=== PATIENT | male | born 1940 | race Caucasian/White ===

== ENCOUNTER → 2024-11-12 18:00 | Outpatient (REF) | payer OTHER, SELFPAY | LOC: RAD 18:00 | PROVIDERS: ATTENDING PHYSICIAN Nurse Practitioner Family; FAMILY PHYSICIAN Family Medicine | DX: M25.551 Pain in right hip (principal) | CPT/HCPCS: 73502 ==

== ENCOUNTER 2025-11-05 07:33 | Inpatient (IN) | payer OTHER, SELFPAY ==
[2025-11-02] VITALS (9 sets, daily range): BP systolic 138–158; BP diastolic 55–73; BMI 24.2
[2025-11-02 13:13] LABS: Hematocrit 35.9 % (39.0-52.0); Hemoglobin 12.5 g/dL (13.0-18.0); Mean Corp Hgb Conc. 34.8 g/dL (33.0-37.0); Mean Corpuscular Volume 93.5 fL (80.0-94.0); Nucleated Red Blood Cells % 0 % (-); Platelet Count 195 10^3/uL (130-400); Red Cell Dist. Width 11.9 % (11.5-14.5)
[2025-11-02 13:23] LABS: ALT (SGPT) 17 U/L (0-50); AST (SGOT) 33 U/L (17-59); Albumin 4.1 g/dl (3.5-5.0); Alkaline Phosphatase 97 U/L (38-126); Blood Urea Nitrogen 30 mg/dl (9-20); Calcium 9.5 mg/dl (8.4-10.2); Carbon Dioxide 22 mmol/L (22-30); Chloride 108 mmol/L (98-107); Glucose 121 mg/dl (70-99); Potassium 4.7 mmol/L (3.5-5.1); Sodium 137 mmol/L (135-145); Total Protein 7.5 g/dl (6.3-8.2); eGFR 53.17
[2025-11-02 15:07] LABS: Urine Character Clear (Clear)
[2025-11-02 15:19] LABS: Urine Squamous Cell 0-2 /LPF (Few)
[2025-11-02 15:20] LABS: Urine White Cell 0-2 /HPF (0-5)
--- NOTE | 2025-11-02 16:54 | ED.GENMED ---
History of Present Illness
<Amita Lindo, MANAGER [employer]LECTRONIC - Last Filed: 11/02/25 22:36>
General
Chief Complaint: Weakness
Source: patient and family ( and daughter at bedside)
Exam Limitations: none
Time Seen by Provider: 11/02/25 16:45
History of Present Illness
History of Present Illness:
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
swelling to his right lower leg and frequent falls in the past 2 days. He does have a history of falling occasionally but states he fell 3 times yesterday, once in the bedroom, he fell out of bed, and once in the bathroom. She is having
trouble getting him up and down the steps stating she is unable to take care of him at home the way he is now.
Pt denies CP, SOB, n/v/d/c. Has been incontinent of urine lately per
<Andrew Victoria DO - Last Filed: 11/02/25 17:41>
General
Nursing documentation reviewed up to this point in time: agreed with
Past History
<Amita Lindo, MANAGER [employer]LECTRONIC - Last Filed: 11/02/25 22:36>
Past History
ED Past Medical History: Other (PE, DVT 20 years ago with Jia filter, not anticoagulated)
ED Past Surgical History: Orthopedic
Social History
Tobacco: Non-smoker
Alcohol: None
Personal:
Living: with family
Review of Systems
<Amita Lindo, MANAGER [employer]LECT[employer]IC - Last Filed: 11/02/25 22:36>
Review of Systems
Allergies reviewed?: Yes
All Other Systems: ROS reviewed and negative except as documented in HPI and ROS
Phy Exam
<Amita Lindo, MANAGER [employer]LECTRONIC - Last Filed: 11/02/25 22:36>
Physical Exam
Physical Exam:
GENERAL: No acute distress. A&Ox3.
CONSTITUTIONAL: Afebrile.
EYES: clear, conjunctivae normal
ENMT: moist mucus membranes, Pharynx nl
RESPIRATORY: Regular respirations, nonlabored, lungs clear.
CARDIOVASCULAR: Regular rate and rhythm, no murmurs, no rubs. Equal pedal pulses, feet warm.
GI: Soft, nontender, normal BS
MUSCULOSKELETAL: Moves with ease. Well perfused. Right lower extremity +1 swollen compared to the left.
SKIN: Warm, dry, pink
PSYCH: Normal mood and affect. Well kept, interactive and appropriate
NEUROLOGIC: Awake, alert and oriented. No focal neurological deficits
Course
<Amita Lindo, MANAGER [employer]LECT[employer]IC - Last Filed: 11/02/25 22:36>
Orders/Labs/Results
Orders:
Orders
11/02/25 Breakfast
Regular
At Your Request: Full Participation
Does patient need a safe tray?: No
11/02/25 12:43
Periph Venous Lwr Ext Rt US [US Periph Venous LOWER Ext RT] Urgent
Comment:
Reason For Exam: pain and swelling
11/02/25 12:56
Complete Blood Count/With Diff Urgent
Comprehensive Metabolic Panel Urgent
11/02/25 14:30
Urinalysis Reflex To Culture Urgent
Date Specimen was Collected: 11/02/25
Time Specimen was Collected: 12:42
Urine Microscopic Reflex Cult Urgent
11/02/25 16:55
Case Management Consult ONCE
Case Management Consult: Discharge Planning
Comment: Increasing weakness, falls, unable to take care of him at home.
11/02/25 17:24
CT Head W/o Iv Contrast Urgent
Comment:
Reason For Exam: falls, new DVT
11/02/25 17:28
0.9% Sodium Chloride 500 ml [Nss] 500 ml IV BOLUS
11/02/25 18:00
Heparin 3,000 units IV PRN PRN
Heparin 6,000 units IV PRN PRN
11/02/25 18:27
Heparin 6,000 units IV NOW STA
Nursing to Place Non Medication Order As Directed
Physician Order: PTT 6 hours after initial start of Heparin infusion
Above order entered?: Yes
11/02/25 18:30
Heparin 47388 Units/250 ml 25,000 units in 250 ml IV PER PROTOCOL
Weight to be used for heparin protocol in kilograms (kg):: 74.4
Protocol:: DVT/PE
PTT Goal Range to be used:: PTT 73 to 111 seconds
Order type:: Initial
INITIAL Infusion Dose (UNITS/KG/hr) & then follow protocol:: 18 units/kg/hr
Infusion Dose in UNITS/hr & then follow protocol (UNITS/hr):: 1,300
INFUSION RATE in mL/hr & then follow protocol (mL/hr):: 13
For DVT/PE algorithm, re-bolus for low PTT?: Yes
PTT less than or equal to 64 seconds:: Re-bolus 80 units/kg (max 10,000units). Increase by 300 units/hr
(+ 3mL/hr)
PTT 64.1 to 72.9 seconds:: Re-bolus 40 units/kg (max 5,000 units). Increase by 200 units/hr
(+ 2mL/hr)
PTT 73 to 111 seconds:: Target Range. No change in rate.
PTT 111.1 to 130.9 seconds:: Decrease rate by 200 units/hr (- 2 mL/hr)
PTT 131 to 199.9 seconds:: HOLD for 1 hr. Then decrease by 200 units/hr (- 2mL/hr)
PTT greater than or equal to 200 seconds:: HOLD for 2 hrs & Notify Provider. Then decrease by 300 units/hr
(- 3mL/hr)
Lab follow-up:: Each change, PTT q6h until 2 consecutive are therapeutic. Then
PTT daily.
11/02/25 18:36
PTT Urgent
Comment: Obtain baseline before beginning heparin infusion if not already collected
11/02/25 19:01
Admit/Transfer Patient As Directed
Co-Sign Provider:
Level of Care: Observation services
Assign to:: Medical/Surgical
Physician / Group: Joelle
Diagnosis: DVT
PRN Pain Medication Management As Directed
May give lesser potent ordered pain med per pt: Yes
preference::
Protocol:: Medication orders for pain may be administered in a
manner that supports deferring to patient preference
when the pt is:
- Requesting an ordered lesser potent pain medication.
Least to most potent pain medications are defined
as: acetaminophen < NSAID < tramadol < opioids
(morphine, oxycodone, hydromorphone).
- Requesting a lesser dose of the same medication IF
ORDERED.
- Requesting a less intrusive route of administration
if both routes are prescribed by the provider (PO <
IV).
11/02/25 19:02
Code Status As Directed
Resuscitation Status: Full Code
11/02/25 19:41
COVID-19 Antigen Urgent
Source: Nasal Swab
Influenza A+B Rapid Molecular Urgent
GAEL Source: Nasal Swab
Specimen Description:
11/02/25 21:03
Acetaminophen [Tylenol] 650 mg PO Q4HPRN PRN
11/02/25 21:03
Echo 2D MMode Color/Doppler Routine
Reason for Study: cardiac murmur, hx rheumatic fever
Heparin Protocol- PTT Orders As Directed
PTT per Heparin protocol: -Obtain CBC and baseline PTT - if not already collected.
-Obtain PTT 6 hours from start of infusion. Then, every 6 hours until 2 consecutive
PTT's are therapeutic. Then, PTT Daily.
-With each rate change, obtain PTT every 6 hours until 2 consecutive PTT's are
therapeutic. Then, PTT Daily.
Activity As Directed
Activity Level: Out of Bed-Early Mobility
With Assistance
Notify MD As Directed
Notify physician if: PTT is greater than or equal to 200.
Vital Signs As Directed
Frequency: Per unit guidelines
Ot Eval And Treat Routine
Pt Eval And Treat Routine
Activity Level: Out of Bed-Early Mobility
Speech Therapy Eval & Treat Routine
Treatment: Cognitive Eval BCAT/MOCA
11/03/25 01:06
PTT Routine
11/04/25 06:00
Complete Blood Count/No Diff Q2D
Comment: notify provider: Platelet count < 130,000 or decrease by 50% from baseline
11/06/25 06:00
Complete Blood Count/No Diff Q2D
Comment: notify provider: Platelet count < 130,000 or decrease by 50% from baseline
11/08/25 06:00
Complete Blood Count/No Diff Q2D
Comment: notify provider: Platelet count < 130,000 or decrease by 50% from baseline
11/10/25 06:00
Complete Blood Count/No Diff Q2D
Comment: notify provider: Platelet count < 130,000 or decrease by 50% from baseline
11/12/25 06:00
Complete Blood Count/No Diff Q2D
Comment: notify provider: Platelet count < 130,000 or decrease by 50% from baseline
11/14/25 06:00
Complete Blood Count/No Diff Q2D
Comment: notify provider: Platelet count < 130,000 or decrease by 50% from baseline
11/16/25 06:00
Complete Blood Count/No Diff Q2D
Comment: notify provider: Platelet count < 130,000 or decrease by 50% from baseline
11/18/25 06:00
Complete Blood Count/No Diff Q2D
Comment: notify provider: Platelet count < 130,000 or decrease by 50% from baseline
Abnormal Lab Results
11/02/25 11/02/25
12:56 14:30
RBC 3.84 L 10^6/uL
(4.70-6.10)
Hgb 12.5 L g/dL
(13.0-18.0)
Hct 35.9 L %
(39.0-52.0)
MCH 32.6 H pg
(27.0-31.0)
Absolute Neuts (auto) 6.9 H 10^3/uL
(1.4-6.5)
Absolute Lymphs (auto) 1.1 L 10^3/uL
(1.2-3.4)
Neutrophils % 82.7 H %
(42.2-75.2)
Lymphocytes % 12.6 L %
(20.5-51.1)
Chloride 108 H mmol/L
(98-107)
BUN 30 H mg/dl
(9-20)
Glucose 121 H mg/dl
(70-99)
Urine Ketones 2+ A
(Negative)
Ur Occult Blood Reflex 4+ A
(Negative)
Urine RBC 3-6 A /HPF
(0-2)
Urine Bacteria (Reflex) Few A
(Negative)
Urine Albumin (Reflex) 3+ A
(Neg - Trace)
11/02/25 12:56
11/02/25 12:56
Vital Signs
Initial and Last Documented VS:
Initial Vital Signs
Temp Pulse Resp BP Pulse Ox
98.0 F 62 17 151/67 100
11/02/25 12:36 11/02/25 12:36 11/02/25 12:36 11/02/25 12:36 11/02/25 12:36
Last Documented Vital Signs
Temp Pulse Resp BP Pulse Ox
98.0 F 62 17 138/71 97
11/02/25 12:36 11/02/25 12:36 11/02/25 12:36 11/02/25 22:00 11/02/25 20:25
<Andrew Victoria, DO - Last Filed: 11/02/25 17:41>
Orders/Labs/Results
Orders:
Orders
11/02/25 Breakfast
Regular
At Your Request: Full Participation
Does patient need a safe tray?: No
11/02/25 12:43
Periph Venous Lwr Ext Rt US [US Periph Venous LOWER Ext RT] Urgent
Comment:
Reason For Exam: pain and swelling
11/02/25 12:56
Complete Blood Count/With Diff Urgent
Comprehensive Metabolic Panel Urgent
11/02/25 14:30
Urinalysis Reflex To Culture Urgent
Date Specimen was Collected: 11/02/25
Time Specimen was Collected: 12:42
Urine Microscopic Reflex Cult Urgent
11/02/25 16:55
Case Management Consult ONCE
Case Management Consult: Discharge Planning
Comment: Increasing weakness, falls, unable to take care of him at home.
11/02/25 17:24
CT Head W/o Iv Contrast Urgent
Comment:
Reason For Exam: falls, new DVT
11/02/25 17:28
0.9% Sodium Chloride 500 ml [Nss] 500 ml IV BOLUS
11/02/25 18:00
Heparin 3,000 units IV PRN PRN
Heparin 6,000 units IV PRN PRN
11/02/25 18:27
Heparin 6,000 units IV NOW STA
Nursing to Place Non Medication Order As Directed
Physician Order: PTT 6 hours after initial start of Heparin infusion
Above order entered?: Yes
11/02/25 18:30
Heparin 50214 Units/250 ml 25,000 units in 250 ml IV PER PROTOCOL
Weight to be used for heparin protocol in kilograms (kg):: 74.4
Protocol:: DVT/PE
PTT Goal Range to be used:: PTT 73 to 111 seconds
Order type:: Initial
INITIAL Infusion Dose (UNITS/KG/hr) & then follow protocol:: 18 units/kg/hr
Infusion Dose in UNITS/hr & then follow protocol (UNITS/hr):: 1,300
INFUSION RATE in mL/hr & then follow protocol (mL/hr):: 13
For DVT/PE algorithm, re-bolus for low PTT?: Yes
PTT less than or equal to 64 seconds:: Re-bolus 80 units/kg (max 10,000units). Increase by 300 units/hr
(+ 3mL/hr)
PTT 64.1 to 72.9 seconds:: Re-bolus 40 units/kg (max 5,000 units). Increase by 200 units/hr
(+ 2mL/hr)
PTT 73 to 111 seconds:: Target Range. No change in rate.
PTT 111.1 to 130.9 seconds:: Decrease rate by 200 units/hr (- 2 mL/hr)
PTT 131 to 199.9 seconds:: HOLD for 1 hr. Then decrease by 200 units/hr (- 2mL/hr)
PTT greater than or equal to 200 seconds:: HOLD for 2 hrs & Notify Provider. Then decrease by 300 units/hr
(- 3mL/hr)
Lab follow-up:: Each change, PTT q6h until 2 consecutive are therapeutic. Then
PTT daily.
11/02/25 18:36
PTT Urgent
Comment: Obtain baseline before beginning heparin infusion if not already collected
11/02/25 19:01
Admit/Transfer Patient As Directed
Co-Sign Provider:
Level of Care: Observation services
Assign to:: Medical/Surgical
Physician / Group: Joelle
Diagnosis: DVT
PRN Pain Medication Management As Directed
May give lesser potent ordered pain med per pt: Yes
preference::
Protocol:: Medication orders for pain may be administered in a
manner that supports deferring to patient preference
when the pt is:
- Requesting an ordered lesser potent pain medication.
Least to most potent pain medications are defined
as: acetaminophen < NSAID < tramadol < opioids
(morphine, oxycodone, hydromorphone).
- Requesting a lesser dose of the same medication IF
ORDERED.
- Requesting a less intrusive route of administration
if both routes are prescribed by the provider (PO <
IV).
11/02/25 19:02
Code Status As Directed
Resuscitation Status: Full Code
11/02/25 19:41
COVID-19 Antigen Urgent
Source: Nasal Swab
Influenza A+B Rapid Molecular Urgent
GAEL Source: Nasal Swab
Specimen Description:
11/02/25 21:03
Acetaminophen [Tylenol] 650 mg PO Q4HPRN PRN
11/02/25 21:03
Echo 2D MMode Color/Doppler Routine
Reason for Study: cardiac murmur, hx rheumatic fever
Heparin Protocol- PTT Orders As Directed
PTT per Heparin protocol: -Obtain CBC and baseline PTT - if not already collected.
-Obtain PTT 6 hours from start of infusion. Then, every 6 hours until 2 consecutive
PTT's are therapeutic. Then, PTT Daily.
-With each rate change, obtain PTT every 6 hours until 2 consecutive PTT's are
therapeutic. Then, PTT Daily.
Activity As Directed
Activity Level: Out of Bed-Early Mobility
With Assistance
Notify MD As Directed
Notify physician if: PTT is greater than or equal to 200.
Vital Signs As Directed
Frequency: Per unit guidelines
Ot Eval And Treat Routine
Pt Eval And Treat Routine
Activity Level: Out of Bed-Early Mobility
Speech Therapy Eval & Treat Routine
Treatment: Cognitive Eval BCAT/MOCA
11/03/25 01:06
PTT Routine
11/04/25 06:00
Complete Blood Count/No Diff Q2D
Comment: notify provider: Platelet count < 130,000 or decrease by 50% from baseline
11/06/25 06:00
Complete Blood Count/No Diff Q2D
Comment: notify provider: Platelet count < 130,000 or decrease by 50% from baseline
11/08/25 06:00
Complete Blood Count/No Diff Q2D
Comment: notify provider: Platelet count < 130,000 or decrease by 50% from baseline
11/10/25 06:00
Complete Blood Count/No Diff Q2D
Comment: notify provider: Platelet count < 130,000 or decrease by 50% from baseline
11/12/25 06:00
Complete Blood Count/No Diff Q2D
Comment: notify provider: Platelet count < 130,000 or decrease by 50% from baseline
11/14/25 06:00
Complete Blood Count/No Diff Q2D
Comment: notify provider: Platelet count < 130,000 or decrease by 50% from baseline
11/16/25 06:00
Complete Blood Count/No Diff Q2D
Comment: notify provider: Platelet count < 130,000 or decrease by 50% from baseline
11/18/25 06:00
Complete Blood Count/No Diff Q2D
Comment: notify provider: Platelet count < 130,000 or decrease by 50% from baseline
Abnormal Lab Results
11/02/25 11/02/25
12:56 14:30
RBC 3.84 L 10^6/uL
(4.70-6.10)
Hgb 12.5 L g/dL
(13.0-18.0)
Hct 35.9 L %
(39.0-52.0)
MCH 32.6 H pg
(27.0-31.0)
Absolute Neuts (auto) 6.9 H 10^3/uL
(1.4-6.5)
Absolute Lymphs (auto) 1.1 L 10^3/uL
(1.2-3.4)
Neutrophils % 82.7 H %
(42.2-75.2)
Lymphocytes % 12.6 L %
(20.5-51.1)
Chloride 108 H mmol/L
(98-107)
BUN 30 H mg/dl
(9-20)
Glucose 121 H mg/dl
(70-99)
Urine Ketones 2+ A
(Negative)
Ur Occult Blood Reflex 4+ A
(Negative)
Urine RBC 3-6 A /HPF
(0-2)
Urine Bacteria (Reflex) Few A
(Negative)
Urine Albumin (Reflex) 3+ A
(Neg - Trace)
11/02/25 12:56
11/02/25 12:56
Vital Signs
Initial and Last Documented VS:
Initial Vital Signs
Temp Pulse Resp BP Pulse Ox
98.0 F 62 17 151/67 100
11/02/25 12:36 11/02/25 12:36 11/02/25 12:36 11/02/25 12:36 11/02/25 12:36
Last Documented Vital Signs
Temp Pulse Resp BP Pulse Ox
98.0 F 62 17 138/71 97
11/02/25 12:36 11/02/25 12:36 11/02/25 12:36 11/02/25 22:00 11/02/25 20:25
<Amita Lindo, MANAGER ELECTRONIC - Last Filed: 11/02/25 22:36>
MDM/Problems Addressed
Differential Diagnosis Includes:
DVT, neuropathy, dehydration
MDM/Problems Addressed:
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
swelling to his right lower leg and frequent falls in the past 2 days. He does have a history of falling occasionally but states he fell 3 times yesterday, once in the bedroom, he fell out of bed, and once in the bathroom. She is having
trouble getting him up and down the steps stating she is unable to take care of him at home the way he is now.
Pt denies CP, SOB, n/v/d/c. Has been incontinent of urine lately per
CBC w no clinically significant abnormality
CMP: BUN 30 otherwise normal
U/A neg
Ultrasound right lower extremity radiology report read: Occlusive thrombus throughout the popliteal vein extending into the peroneal and posterior tibial veins. Additionally there is a nonocclusive thrombus within the distal femoral vein.
With recent falls we will check head CT before starting heparin
6:[address] unremarkable. Heparin drip ordered.
Hospitalist notified of admission
<Amita Lindo MANAGER [employer]LECTRONIC - Last Filed: 11/02/25 22:36>
*Pulse Oximetry
SaO2: 100
Oxygen Mode of Delivery: Room air
Patient hypoxic: no
*Critical Care Note
Total Time (30-74mins, 75-104mins- exclusive of procedures): Not Applicable
ED Attending Note
<Amita Lindo MANAGER [employer]LECT[employer]IC - Last Filed: 11/02/25 22:36>
-
Portions of this chart may have been created with voice recognition software.� Occasional wrong word or��sound alike� substitutions may have occurred due to the inherent limitations of voice recognition software.
<Andrew Victoria, DO - Last Filed: 11/02/25 17:41>
ED Attending Note
Patient seen and examined by attending physician: Yes
ED Attending Note:
I have reviewed and agree with history and treatment plan by Nissa Lindo DNP. My exam revealed 85-year-old male with right lower extremity edema. No other signs of trauma. Normal pulses in all extremities. Patient unable to ambulate. Will check
CT head start heparin due to right lower extremity DVT. Hospitalist admission after normal head CT.
Discharge Plan
Departure
Patient Disposition: Admit
Date of Disposition: 11/02/25
Time of Disposition: 18:32
Admit to: Med/Surg
Presentation/result/management discussed w/ accepting MD/DO: Hospitalist
Condition: Fair
Discharge Problem:
General weakness, Falls, Mild dehydration, Acute deep vein thrombosis (DVT) of right lower extremity
Interventions
Interventions:
*General Assessment Last Done: 11/02/25 17:31
*Neglect/Abuse Screening Last Done: 11/02/25 12:36
*ED COVID-19 Vaccine History Last Done: 11/02/25 17:31
*ED Influenza Vaccine History Last Done: 11/02/25 17:[address]
[facility] Fall Risk Assessment Tool Last Done: 11/02/25 17:28
*Risk Screen - Suicide (C-SSRS) Last Done: 11/02/25 17:31
ED- Cardiac Assessment Last Done: 11/02/25 17:31
ED- Neurological Assessment Last Done: 11/02/25 17:31
ED- Pulmonary Assessment Last Done: 11/02/25 17:31
--- NOTE | 2025-11-02 17:27 | EDCM ---
Received consult, reviewed chart and met with pt, his and daughters bedside in ED.
Lives with his in [address]. Independent in ADLs, personal care and ambulation at baseline, uses a cane, has been using a critch over past several days, also has walker but does not use it.
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 BPH.
Pt had 3 falls yesterday, does not feel she can care for him at home.
Discussed SNF placement, will need to be seen by PT for recommendations.
They are not familiar with SNF in the area, discussed reviewing facilities on [employer].
Per Shannan UNGER, pt has DVT and will be admitted.
CM will continue to follow for all discharge planning needs.
[2025-11-02] MEDS: NSS 500 IV (17:43)
[2025-11-02 18:55] LABS: APTT 27.7 Sec (23.4-35.0)
[2025-11-02] MEDS: HEPARIN 6000 UNITS IV (19:05)
--- NOTE | 2025-11-02 19:05 | HPS.HSE ---
Addendum entered and electronically signed by Kelvin Lai MD 11/02/25 19:40:
This is an addendum to H&P written by Maryellen Ramsey on 11/02/2025. �Patient seen examined independently with PA.
85-year-old male past medical history of CKD 3A, prior DVT PE with history of IVC filter, rheumatic fever, presenting with 3 falls yesterday. �Pain in right calf for 6 weeks. �Patient also with fatigue at this time and a little forgetful at this
time. �Slight cough.
No provoking factors apart from immobility on regular basis.�
Vital signs unremarkable.
Labs unremarkable.
Venous ultrasound shows occlusive thrombus throughout the popliteal vein extending to the peroneal/posterior tibial veins. �Nonocclusive thrombus within the distal femoral vein. �CT head shows no acute intracranial abnormality. �Moderate
periventricular and subcortical white matter hypodensities nonspecific although may be sequelae of moderate chronic small vessel ischemic disease.
Urinalysis unremarkable.
Patient with recurrent unprovoked right lower extremity DVT. �Heparin drip.
Patient will be confused at this time which is not like his normal self. �Urinalysis unremarkable. �Check COVID and flu.
Original Note:
Family Physician
-
Family Physician: NOT KNOW UNKNOWN - PT DOES
Chief Complaint
-
Frequent Falls
History of Present Illness
Patient is an 85 y/o male past medical history of CKD IIIA and DVT/PE who presents with frequent falls. Additional history is obtained from patient's family at the bedside. Patient sustained 3 falls yesterday. Patient is complaining of pain in
his right calf, particularly with movement for the past 6 weeks. He denies chest pain or palpitations.
Medical History
Past Medical History
Past Medical History: Reports Other
Additional Past Medical History:
CKD Stage IIIA
DVT/PE
Rheumatic Fever as a child
Past Surgical History: Reports Other
Additional Past Surgical History:
Right Hip Replacement
Right Total Knee Replacement
Social History
Tobacco: Non-smoker
Alcohol: None
Personal:
Living: With Family
Family History
Family History: Not pertinent
Allergies / Home Medications
Allergies reflects when Allergies were last updated in [facility].
Home Medications with original date entered in [facility]
Allergy/Medication List:
Allergies
Allergy/AdvReac Type Severity Reaction Status Date / Time
No Known Allergies Allergy Unverified 11/02/25 12:35
Home Medications
No Meds [No Current Medications] 11/02/25
Review of Systems
-
History Source: Patient
A 12 point ROS was completed and negative except as noted: Yes
Constitutional: Denies Fever or Chills
Respiratory: Denies Cough or Trouble Breathing
Cardiac: Denies Chest Pain or Palpitations
Physical Exam
Vital Signs
Vital Signs
Temp Pulse Resp BP Pulse Ox
98.0 F 62 17 141/67 98
11/02/25 12:36 11/02/25 12:36 11/02/25 12:36 11/02/25 17:28 11/02/25 17:31
Physical Exam
General: Comfortable and Conversant
HEENT: Anicteric and Moist mucous membranes
Respiratory: Clear and Non Labored Respirations
Cardiac: S1/S2, Regular Rhythm and Murmur
GI: Soft and Non Tender
Rectal: Deferred by Provider
Musculoskeletal: No Clubbing, No Cyanosis and Edema, Right Lower Extremity
Skin: Warm, Dry and Other (Mild erythema right lower extremity)
Neuro: Awake, Alert and Nonfocal/grossly intact
Psych: Calm and Other (Appears slightly confused)
Laboratory Results
-
11/02/25 12:56
11/02/25 12:56
Laboratory Results
APTT 27.7 Sec (23.4-35.0) 11/02/25 18:36
Total Bilirubin 1.0 mg/dl (0.2-1.3) 11/02/25 12:56
AST 33 U/L (17-59) 11/02/25 12:56
ALT 17 U/L (0-50) 11/02/25 12:56
Alkaline Phosphatase 97 U/L (38-126) 11/02/25 12:56
Peripheral Vascular US:
Occlusive thrombus throughout the popliteal vein extending into the peroneal and posterior tibial veins. Additionally there is nonocclusive thrombus within the distal femoral vein.
Head CT:
No acute intracranial abnormality noted.
There are moderate periventricular and subcortical white matter hypodensities which are nonspecific although may be sequelae of moderate chronic small vessel ischemic disease.
Data Reviewed
-
CT Scan: Report Reviewed by me
Ultrasound: Report Reviewed by me
Lab Data: Labs Reviewed by me
Old Records: Reviewed
Impression/Plan
-
Right Lower Extremity DVT
-Continue heparin drip
Generalized Weakness / Frequent Falls / Confusion
-Family reports patient has not been sleeping well
-Check COVID and Influenza
-Consult PT/OT
Cardiac Murmur, likely related to rheumatic heart disease
-Check Echo
CKD Stage IIIA
-Renal function at baseline
Code Status: Full Code
[2025-11-02] MEDS: HEPARIN 25000 UNITS/250 ML IV (19:06)
[2025-11-02 20:08] LABS: COVID-19 Antigen Negative (Negative)
[2025-11-03] VITALS (13 sets, daily range): BP systolic 125–167; BP diastolic 58–91; PULSE 71–73; O2SAT 96; BMI 21.9
[2025-11-03 01:51] LABS: APTT 103.1 Sec (23.4-35.0)
--- NOTE | 2025-11-03 07:10 | W.PN.HOSP.TC ---
Addendum entered and electronically signed by Rosana Madsne MD 11/03/25 18:28:
I saw and evaluated the patient independently. I reviewed and discussed the resident�s note and agree with findings and plan as documented by Dr. Cortez.
GENERAL: well developed, well nourished, male in no apparent distress, alert and oriented x 2 (name and year, said we were in [facility])
HEENT: NC/AT, very hard of hearing
HEART: regular rate and rhythm, +S1, +S2, holosystolic murmur
LUNGS : clear to auscultation bilaterally
ABDOM: soft, nontender, nondistended, + bowel sounds
EXT: right leg swollen and red
NEUROLOGIC: significant apparent dementia
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
Generalized Weakness/Frequent Falls/Confusion--hx of Dementia--MOCA 09/16--needs neuropsych testing--PT/OT-- states this is his baseline.
Cardiac Murmur(pansystolic), likely related to rheumatic heart disease- pending Echo
CKD Stage IIIA--Renal function at baseline
Dr. Cortez called his to get additional history. The told me for the last 4 to 5 years he has been confused at times and mostly sleepy/drowsy and tired however no official dementia dx was made. She verified that he does not take any
medications and he has a history of previous DVT and PE and has a IVC filter. She was very appreciative of the updates and the call.
Original Note:
Today's Communication/Plan
-
check echo
continue heparin drip
pt/ot
cm consult for pricing on eliquis
consult heme for recurrent dvt and workup
Assessment / Plan
Assessment / Plan
85-year-old male past medical history of CKD 3A, prior DVT PE with history of IVC filter, rheumatic fever, presented after experiencing recurrent falls. Initial investigation with DVT on the right lower extremity.
#Right Lower Extremity DVT
- US with Occlusive thrombus throughout the popliteal vein extending into the peroneal and posterior tibial veins. Additionally there is nonocclusive thrombus within the distal femoral vein.
- s/p heparin bolus and currently on heparin drip; Continue heparin drip
- cm consult for pricing on eliquis
- consult heme for recurrent dvt and workup
#Generalized Weakness / Frequent Falls / Confusion
# hx of Dementia
-Family reports patient has not been sleeping well
-COVID and Influenza negative
-pending PT/OT eval
Head CT IMPRESSION:
No acute intracranial abnormality noted.
There are moderate periventricular and subcortical white matter hypodensities which are nonspecific although may be sequelae of moderate chronic small vessel ischemic disease. If there is high clinical suspicion for ischemia an MRI may be considered
for further evaluation.
states this is his baseline.
#Cardiac Murmur(pansystiolic), likely related to rheumatic heart disease
- pending Echo
#CKD Stage IIIA
-Renal function at baseline
I called his to get additional history. The told me for the last 4 to 5 years he has been confused at times and mostly sleepy/drowsy and tired however no official dementia dx was made. She verified that he does not take any medications
and he has a history of previous DVT and PE and has a IVC filter. She was very appreciative of the updates and the call.
Code Status: Full Code
Anticipated Discharge: 24 - 48 hours
Subjective/Interval History
-
Date of Service: November 03, 2025
AFVSS. Patient offers no new complaints(keeping in mind that patient has dementia)
Objective Data
-
Labs:
Laboratory Results
11/03/25 11/03/25
01:11 08:30
APTT 103.1 H Pending
Vital Signs:
Vital Signs
Temp Pulse Resp BP Pulse Ox
98 F 72 17 147/71 97
11/03/25 06:18 11/03/25 06:18 11/03/25 06:18 11/03/25 06:18 11/02/25 20:25
I&O
11/02/25 11/03/25 11/04/25
06:59 06:59 06:59
Output Total 200 / 200
Balance -200 / -200
Review of Systems
-
Unable to obtain full review of systems at this time due to: Dementia
History Source: Patient
Respiratory: Denies Trouble Breathing
Cardiac: Denies Chest Pain
Abdomen/GI: Denies Abdominal Pain
Neuro: Denies Headache or Weakness
Physical Exam
-
General: Well Nourished, Comfortable and Appears Chronically Ill
Respiratory: Clear to Auscultation
Cardiac: Regular Rhythm, S1/S2 and Murmur (Pansystolic)
GI: Soft and Nontender
Musculoskeletal: No Cyanosis
Skin: Warm and Other (Mild erythema of right lower extremity)
Neuro: Awake, Alert and Other (Oriented to time but not to place)
Data Reviewed
-
CT Scan: Report Reviewed by me, Discussed with Physician and Discussed with Patient
Ultrasound: Report Reviewed by me, Discussed with Physician and Discussed with Patient
Labs: Labs Reviewed by me, Discussed with Physician and Discussed with Patient
[2025-11-03 09:20] LABS: APTT 65.8 Sec (23.4-35.0)
[2025-11-03] MEDS: HEPARIN 3000 UNITS IV (09:59)
--- NOTE | 2025-11-03 11:06 | CM ---
Addendum entered by Alana Gonzáles 11/03/25 12:26:
Patient signed OBS/REESE form and given to motor express clerk for filing and copy to .
Original Note:
Patient seen at bedside with physicians in ED. Patient here as OBS/REESE and CM provided form in room. CM will call to patient family to update. CM will call to confirm cost of Eliquis and pending therapy recommendation, SNF vs home with VN. CM will
continue to follow for discharge planning needs.
Plan; SNF vs home with VN pending medical treatment plan
--- NOTE | 2025-11-03 11:34 | CON.ONC ---
Consultation
-
Date Consultation Requested: 11/03/25
Date Consultation Performed: 11/03/25
Requesting Provider: Tena
Performing Provider: Gillian
Reason for Consultation: DVT
Impression
Impression
RLE popliteal DVT
Gait dysfunction
Hx IVC filter
Suspected dementia
Plan
Plan
IV heparin started. With falls, not sure candidate for outpatient A/C as bleeding risk.
Get a Phys Tx eval to assess anticoagulation safety from perspective of falls risk. He has IVC filter already in case is is determined to be a poor A/C candidate.
Hypercoag workup not indicated as it will not environmental change analyst especially with his advanced age, co morbidities (falls risk, suspected dementia), and not covered while inpatient.
Main decision will be the safety of anticoagulation to improve symptomic DVT as IVC filter should protect him from PE.
Patient History
History of Present Illness
CC: Weakness, falls, leg swelling
HPI: 85-year-old male with remote history of DVT and pulmonary embolus 20 years ago has Tatum filter presents with swelling to his right lower leg and frequent falls in the past 2 days. He does have a history of falling occasionally but
states he fell 3 times yesterday. She is having trouble getting him up and down the steps stating she is unable to take care of him at home the way he is now.
Pt denies CP, SOB, n/v/d/c. Seen in ECHO lab.
Past-Medical/Surgical History
PMH: PE, DVT 20 years ago with Tatum filter, not anticoagulated), BPH, suspected dementia, Aortic stenosis, Hx rheumatic fever during childhood, Stage 3a CKD
PSH: Right Hip Replacement, Right Total Knee Replacement
Social History
Tobacco: Non-smoker
Alcohol: None
Personal:
Living: with family
Patient Medication
�Medication �Instructions �Recorded �Confirmed �Last Taken �Type
No Meds [No Current Medications] 11/02/25 11/02/25 Unknown History
Active Medications
Generic Name Dose Route Start Last Admin
Trade Name Freq PRN Reason Stop Dose Admin
Acetaminophen 650 mg 11/02/25 21:03
Acetaminophen 325 Mg Tablet PO 11/30/25 21:02
Q4HPRN PRN
mild pain/ fever>100.5F
Heparin Sodium 6,000 units 11/02/25 18:00
Heparin 80 Units/Kg Iv Rebolus IV 11/30/25 17:59
PRN PRN
PTT < OR = 64 seconds
Heparin Sodium 3,000 units 11/02/25 18:00 11/03/25 09:59
Heparin 40 Units/Kg Iv Rebolus IV 11/30/25 17:59 3,000 units
PRN PRN Administration
PTT = 64.1 to 72.9 seconds
Heparin Sodium 25,000 units in 250 mls @ 0 mls/hr 11/02/25 18:30 11/02/25 19:06
Heparin 29013 Units/250 Ml IV 250 mls
PER PROTOCOL MICHAEL Administration
Protocol
Per Protocol
Sodium Chloride 0 flush 11/02/25 22:00
Sodium Chloride 0.9% (Flush) Syringe IV 11/30/25 21:59
PER PROTOCOL MICHAEL
Physical Exam
-
General: No Apparent Distress and Comfortable
HEENT: Negative Jaundice
Cardiology: S1, S2 and Murmur (2-3+)
Pulmonary: Clear
GI: Soft
Labs
Lab Results
WBC 8.4 10^3/uL (4.8-10.8) 11/02/25 12:56
RBC 3.84 10^6/uL (4.70-6.10) L 11/02/25 12:56
Hgb 12.5 g/dL (13.0-18.0) L 11/02/25 12:56
Hct 35.9 % (39.0-52.0) L 11/02/25 12:56
MCV 93.5 fL (80.0-94.0) 11/02/25 12:56
MCH 32.6 pg (27.0-31.0) H 11/02/25 12:56
MCHC 34.8 g/dL (33.0-37.0) 11/02/25 12:56
RDW 11.9 % (11.5-14.5) 11/02/25 12:56
Plt Count 195 10^3/uL (130-400) 11/02/25 12:56
MPV 10.0 fL (7.4-10.4) 11/02/25 12:56
Abs Immat Gran (auto) 0.0 10^3/uL (0-0.05) 11/02/25 12:56
Absolute Neuts (auto) 6.9 10^3/uL (1.4-6.5) H 11/02/25 12:56
Absolute Lymphs (auto) 1.1 10^3/uL (1.2-3.4) L 11/02/25 12:56
Absolute Monos (auto) 0.3 10^3/uL (0.1-0.6) 11/02/25 12:56
Absolute Eos (auto) 0.0 10^3/uL (0-0.7) 11/02/25 12:56
Absolute Basos (auto) 0.0 10^3/uL (0-0.2) 11/02/25 12:56
Immature Gran % 0.2 % (0-0.5) 11/02/25 12:56
Neutrophils % 82.7 % (42.2-75.2) H 11/02/25 12:56
Lymphocytes % 12.6 % (20.5-51.1) L 11/02/25 12:56
Monocytes % 3.9 % (1.7-9.3) 11/02/25 12:56
Eosinophils % 0.2 % (0-6) 11/02/25 12:56
Basophils % 0.4 % (0-2) 11/02/25 12:56
Creatinine 1.3 mg/dL (0.7-1.3) 11/02/25 12:56
Vital Signs
Vital Signs
Temp Pulse Resp BP Pulse Ox
97.4 F 70 20 154/67 97
11/03/25 07:17 11/03/25 10:00 11/03/25 10:00 11/03/25 10:00 11/02/25 20:25
--- NOTE | 2025-11-03 13:12 | PTOTSP ---
FUR SEWER Evaluation
Patient presents with signs concerning for a severe cognitive linguistic impairment that is also affecting expressive and receptive language. MOCA version 8.1 = 09/16 (below normal of 26 or higher). See patient care note for details.
Recommend:
1. Consider neuro consult and/or neuropsych testing at the next level of care
2. Full supervision with higher level cognitive linguistic tasks (meds, finances, cooking)
[2025-11-03] MEDS: HEPARIN 25000 UNITS/250 ML IV (16:25)
[2025-11-03 17:00] LABS: APTT 173.8 Sec (23.4-35.0)
[2025-11-04 00:43] LABS: APTT 88.8 Sec (23.4-35.0)
[2025-11-04 06:47] LABS: Hematocrit 32.6 % (39.0-52.0); Hemoglobin 11.5 g/dL (13.0-18.0); Mean Corp Hgb Conc. 35.3 g/dL (33.0-37.0); Mean Corpuscular Volume 92.9 fL (80.0-94.0); Platelet Count 180 10^3/uL (130-400); Red Cell Dist. Width 11.8 % (11.5-14.5)
[2025-11-04 06:58] LABS: APTT 109.1 Sec (23.4-35.0)
--- NOTE | 2025-11-04 07:16 | W.PN.HOSP.TC ---
Addendum entered and electronically signed by Rosana Madsen MD 11/04/25 18:10:
I saw and evaluated the patient independently. I reviewed and discussed the resident�s note and agree with findings and plan as documented by Dr. Cortez.
GENERAL: well developed, well nourished, male in no apparent distress
HEENT: NC/AT, very hard of hearing
HEART: regular rate and rhythm, +S1, +S2, holosystolic murmur
LUNGS : clear to auscultation bilaterally
ABDOM: soft, nontender, nondistended, + bowel sounds
EXT: right leg swollen and red
NEUROLOGIC: significant apparent dementia
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
Generalized Weakness/Frequent Falls/Confusion--hx of Dementia--MOCA 09/16--needs neuropsych testing--PT/OT-- states not baseline as current mental status decline has been the last 2 weeks--consult neuro
Cardiac Murmur(pansystolic), likely related to rheumatic heart disease- pending Echo
CKD Stage IIIA--Renal function at baseline
DVT proph--IV heparin drip
code status--full code
Original Note:
Today's Communication/Plan
-
Placement per CM
heme input for AC
neuro eval
Assessment / Plan
Assessment / Plan
85-year-old male past medical history of CKD 3A, prior DVT PE with history of IVC filter, rheumatic fever, presented after experiencing recurrent falls. Initial investigation with DVT on the right lower extremity.
#Right Lower Extremity DVT
- US with Occlusive thrombus throughout the popliteal vein extending into the peroneal and posterior tibial veins. Additionally there is nonocclusive thrombus within the distal femoral vein.
- s/p heparin bolus and currently on heparin drip; Continue heparin drip
- cm consult for pricing on eliquis
- heme input appreciated
- There is concern for safety with patient on anticoagulation given the history of frequent falls
#Generalized Weakness / Frequent Falls / Confusion
# hx of Dementia
-Family reports patient has not been sleeping well
-COVID and Influenza negative
- PT/OT eval recs SNF; might need [facility] rehab
- will consult neuro for evaluation
Head CT IMPRESSION:
No acute intracranial abnormality noted.
There are moderate periventricular and subcortical white matter hypodensities which are nonspecific although may be sequelae of moderate chronic small vessel ischemic disease. If there is high clinical suspicion for ischemia an MRI may be considered
for further evaluation.
states this is his baseline.
#Cardiac Murmur(pansystiolic), likely related to rheumatic heart disease
- ECHO SUMMARY
1. Normal left ventricular chamber size with mild left ventricular hypertrophy, ejection fraction 6065%.
2. Moderate aortic stenosis with peak/mean gradient of 59/36 mmHg respectively, aortic valve area 1.3 cm².
#CKD Stage IIIA
-Renal function at baseline
I called his for updated on medical progress. She is aware regarding the placement recommendations and agree. She is aware of the safety concerns while being on a blood thinner for DVT prophylaxis
Code Status: Full Code
DVT prophylaxis: Patient is on heparin drip
Anticipated Discharge: Within 24 hours
Subjective/Interval History
-
Date of Service: November 04, 2025
AFVSS. Patient offers no new complaints.
Objective Data
-
Labs:
Laboratory Results
11/04/25 11/04/25
00:19 06:23
WBC 9.3
Hgb 11.5 L
Hct 32.6 L
Plt Count 180
APTT 88.8 H 109.1 H
Vital Signs:
Vital Signs
Temp Pulse Resp BP Pulse Ox
99.5 F 67 18 150/65 96
11/03/25 23:00 11/03/25 23:00 11/03/25 23:00 11/03/25 23:00 11/03/25 23:00
I&O
11/03/25 11/04/25 11/05/25
06:59 06:59 06:59
Intake Total 480 / 480
Output Total 200 / 200 950 / 950
Balance -200 / -200 -470 / -470
Review of Systems
-
Unable to obtain full review of systems at this time due to: Dementia
History Source: Patient
Respiratory: Denies Trouble Breathing
Cardiac: Denies Chest Pain
Abdomen/GI: Denies Abdominal Pain
Neuro: Denies Headache or Weakness
Physical Exam
-
General: Well Nourished, Comfortable and Appears Chronically Ill
Respiratory: Clear to Auscultation
Cardiac: Regular Rhythm, S1/S2 and Murmur (Pansystolic)
GI: Soft and Nontender
Genito-urinary: Hankins
Musculoskeletal: No Cyanosis
Skin: Warm and Other (Mild erythema of right lower extremity)
Neuro: Awake, Alert and Other (Oriented to time but not to place)
Data Reviewed
-
Labs: Labs Reviewed by me, Discussed with Physician, Discussed with Patient and Discussed with Family
[2025-11-04 07:27] VITALS: BP 139/57
--- NOTE | 2025-11-04 08:38 | WOUNDNOTE ---
BACK (MID/LEFT SIDE)
--- NOTE | 2025-11-04 08:38 | WOUNDNOTE ---
HEELS (slow to frank red)
--- NOTE | 2025-11-04 08:39 | WOUNDNOTE ---
R ARM (NEAR ELBOW)
--- NOTE | 2025-11-04 08:40 | WOUNDNOTE ---
[facility] RN note: Patient admitted with RLE DVT, falls.
See H&P for complete history.
PMH: CKD3a, DVT/PE, IVC filter, Rheumatic fever.
Wound Location and type/assessment: Patient admitted with: Coccyx/L buttocks small stage 2 pressure injuries. Scrotal/holly mild MASD, R back dermal abrasion, R arm near elbow dermal skin tear, R hip and back bruise, RLE dry scabbed abrasions, heels
slow to frank red.
Appetite: fair.
Pressure redistribution devices in place: [employer] Accumax. t/c Spoke with [employer] and requested an air mattress. Discussed with LORETTA White.
Plan: Patient incontinent of soft brown stool. Holly care given. Silicone border foam applied to coccyx. Protective foam dressing changed on heels. Patient turned to L semi side lying position. Heels off bed with pillow and air chair cushion. Foam
turning wedge placed in room.
Will confirm orders with Dr. Cortez and discussed with LORETTA Wilkes.
Care plan to be updated. Will sign off. Call if needed.
Note to case management requested for discharge: Air mattress at SNF. VN if goes home.
Recommend follow up at wound care center upon discharge if needed.
[2025-11-04] MEDS: HEPARIN 25000 UNITS/250 ML IV (13:17)
--- NOTE | 2025-11-04 14:08 | CM ---
Addendum entered by Alana Gonzáles 11/04/25 17:10:
Per insurance cost 40$ call reference number is [id number]
Addendum entered by Alana Gonzáles 11/04/25 16:43:
left for [facility] requesting cost of eliquis; also called the pharmacy for the plan but they directed CM to member services and CM attempted to obtain information. CM will continue to follow for discharge planning needs.
Original Note:
Patient seen at bedside with physician and patient . Patient requests placement. CM will send out referrals in 10-15 mile radius per request. CM will continue to follow for discharge planning needs.
Plan; SNF
[2025-11-04 15:09] VITALS: BP 161/87
[2025-11-04] MEDS: TYLENOL 650 MG PO (22:48)
[2025-11-04 22:53] VITALS: BP 129/50
[2025-11-05 07:32] VITALS: BP 134/57
[2025-11-05 07:37] LABS: APTT 92.8 Sec (23.4-35.0)
--- NOTE | 2025-11-05 08:26 | WOUNDNOTE ---
[facility] RN note: t/c Spoke with RN Chung who confirmed she did receive an air mattress from the bed tech this am and is switching patient's bed now.
[2025-11-05 08:29] LABS: Blood Urea Nitrogen 24 mg/dl (9-20); Calcium 8.8 mg/dl (8.4-10.2); Carbon Dioxide 24 mmol/L (22-30); Chloride 105 mmol/L (98-107); Estimated Creatinine Clearance 41 ml/min; Glucose 127 mg/dl (70-99); Magnesium 1.9 mg/dl (1.6-2.3); Potassium 3.5 mmol/L (3.5-5.1); Sodium 137 mmol/L (135-145); eGFR 53.17
[2025-11-05 09:02] LABS: Ferritin 327.0 ng/ml (17.9-464.0)
[2025-11-05] MEDS: HEPARIN 25000 UNITS/250 ML IV (09:11)
[2025-11-05 09:33] LABS: Folate > 20.0 ng/ml (2.76-20); Vitamin B12 742 pg/ml (239-931)
--- NOTE | 2025-11-05 09:40 | WOUNDNOTE ---
[facility] RN note: Farhad Gonzáles re: recommend an air mattress for patient at SNF.
--- NOTE | 2025-11-05 10:00 | W.PN.HOSP.TC ---
Addendum entered and electronically signed by Rosana Madsen MD 11/05/25 15:27:
I saw and evaluated the patient independently. I reviewed and discussed the resident�s note and agree with findings and plan as documented by Dr. Cortez.
GENERAL: well developed, well nourished, male in no apparent distress--not answering
HEENT: NC/AT, very hard of hearing
HEART: regular rate and rhythm, +S1, +S2, holosystolic murmur
LUNGS : clear to auscultation bilaterally
ABDOM: soft, nontender, nondistended, + bowel sounds
EXT: right leg swollen and red
NEUROLOGIC: significant apparent dementia
acute change in mental status -- spoke with and 2 daughters (both daughters indicate that his current hospital presentation is MUCH different than before he came in)--encephalopathy, worsening dementia?, stroke--consult neuro (consult was
cancelled this AM by Dr. De Leon)--will check MRI--stop IV heparin--TSH, folate, vit B12 all WNL
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
Generalized Weakness/Frequent Falls/Confusion--hx of Dementia--MOCA 10/--needs neuropsych testing--PT/OT-- states not baseline as current mental status decline has been the last 2 weeks (daughters dispute this and say last 2 DAYS)--consult
neuro
Cardiac Murmur(pansystolic), likely related to rheumatic heart disease- pending Echo
CKD Stage IIIA--Renal function at baseline
DVT proph--IV heparin drip
code status--full code
Original Note:
Today's Communication/Plan
-
neuro consult
mri brain
ivf
dc heparin for now
Assessment / Plan
Assessment / Plan
85-year-old male past medical history of CKD 3A, prior DVT PE with history of IVC filter, rheumatic fever, presented after experiencing recurrent falls. Initial investigation with DVT on the right lower extremity.
#Right Lower Extremity DVT
- US with Occlusive thrombus throughout the popliteal vein extending into the peroneal and posterior tibial veins. Additionally there is nonocclusive thrombus within the distal femoral vein.
- s/p heparin bolus and currently on heparin drip; will stop it for now since we are getting additional neuro workup
- heme input appreciated
- There is concern for safety with patient on anticoagulation given the history of frequent falls
#Generalized Weakness / Frequent Falls / Confusion
# hx of Dementia
-Family reports patient has not been sleeping well
-COVID and Influenza negative
- PT/OT eval recs SNF; might need [facility] re[facility]
- will consult neuro again for evaluation
Patient's and 2 daughters were present in the room today. During discussing patients medical condition daughters were concerned as they reported that this is a acute change in his mentation.
We informed the family that we have the information from the that this has been going on for many years, to which the agreed and mentioned that yes and for the last 2 weeks it is happening more frequently and he is getting more confused.
However the daughters stated that they do not believe that it has been going on for 2 weeks and they think this has been going on only for 4 to 5 days and it is progressively getting worse.
showed the documentation on her phone from last month when on 1 day he was trying to write something and could not write clearly, the next day he was able to write clearly.
Daughter mentioned that couple of days before coming to the hospital he was walking and talking to the daughters.
We discussed with the family that initial history was different from current concerns. With this new concerns even though I am not sure if the management will change much with getting more imaging studies however we will order an MRI brain, will
stop the heparin drip. Consulted the neurology again.
There is a possibility of Parkinson's picture given the family's explanation of patient's rigidity, trouble with starting movements, flat affect.
Patient is refusing to eat at this time. Will start IV fluids
Head CT IMPRESSION:
No acute intracranial abnormality noted.
There are moderate periventricular and subcortical white matter hypodensities which are nonspecific although may be sequelae of moderate chronic small vessel ischemic disease. If there is high clinical suspicion for ischemia an MRI may be considered
for further evaluation.
states this is his baseline.
#Cardiac Murmur(pansystiolic), likely related to rheumatic heart disease
- ECHO SUMMARY
1. Normal left ventricular chamber size with mild left ventricular hypertrophy, ejection fraction 6065%.
2. Moderate aortic stenosis with peak/mean gradient of 59/36 mmHg respectively, aortic valve area 1.3 cm².
#CKD Stage IIIA
-Renal function at baseline
Code Status: Full Code
DVT prophylaxis: Patient is on heparin drip
Anticipated Discharge: 24 - 48 hours
Subjective/Interval History
-
Date of Service: November 05, 2025
1 reading of 100.7 overnight. Other vitals remained stable. patient drowsy however arousable and offers no complaints. Patient is confused
Objective Data
-
Labs:
Laboratory Results
11/05/25
07:13
APTT 92.8 H
Sodium 137
Potassium 3.5 D
Chloride 105
Carbon Dioxide 24
BUN 24 H
Creatinine 1.3
Glucose 127 H
Calcium 8.8
Vital Signs:
Vital Signs
Temp Pulse Resp BP Pulse Ox
99.3 F 60 19 134/57 97
11/05/25 07:32 11/05/25 07:32 11/05/25 07:32 11/05/25 07:32 11/05/25 07:45
I&O
11/04/25 11/05/25 11/06/25
06:59 06:59 06:59
Intake Total 480 / 480 720 / 720
Output Total 950 / 950 450 / 450
Balance -470 / -470 270 / 270
Review of Systems
-
Unable to obtain full review of systems at this time due to: Dementia
History Source: Patient
Respiratory: Denies Trouble Breathing
Cardiac: Denies Chest Pain
Abdomen/GI: Denies Abdominal Pain
Neuro: Denies Headache or Weakness
Physical Exam
-
General: Comfortable and Appears Chronically Ill
Respiratory: Clear to Auscultation
Cardiac: Regular Rhythm, S1/S2 and Murmur (Pansystolic)
GI: Soft and Nontender
Genito-urinary: Other (Condom catheter)
Musculoskeletal: No Cyanosis
Skin: Warm and Other (Mild erythema of right lower extremity)
Neuro: Awake and Other (Oriented to time but not to place)
Psych: Calm
Data Reviewed
-
Labs: Labs Reviewed by me, Discussed with Physician and Discussed with Patient
[2025-11-05 14:22] VITALS: BP 108/62; BP 138/62; BP 149/68; PULSE 67; PULSE 71; PULSE 81; O2SAT 95
[2025-11-05] MEDS: NSS 1000 IV (14:22)
[2025-11-05 14:23] VITALS: BP 108/62; BP 138/62; BP 149/68; PULSE 67; PULSE 71; PULSE 81; O2SAT 96
[2025-11-05 15:28] VITALS: BP 149/69
--- NOTE | 2025-11-05 15:34 | CON.NEURO ---
Addendum entered and electronically signed by Arthur De Leon MD 11/05/25 17:32:
Studies reviewed.
I have personally examined the patient. I reviewed and agree with the PET CARETAKER's Note.
My addenda:
Awake, abulic. No acute distress.
Speech minimal output, hoarse.
Follows 1-step requests w/ difficulty. No tremor.
Extra-ocular movements grossly intact.
Facial movements full and symmetric. Hearing intact to normal conversational volume.
Reduced movement right upper extremity and right lower extremity compared with contralateral side.
Neck: full ROM.
Chest: no dyspnea
Heart: no JVD
Ext: (-) Clubbing, (-) Cyanosis, (-) Edema
IMPRESSIONS/RECOMMENDATIONS:
Abrupt onset of aphasia and abulia as well as right upper and lower extremity weakness
Most likely due to acute ischemic stroke
Check MRI of brain
Check CTA head and neck
initiate aspirin 81 mg daily; if there is evidence of acute ischemic stroke by MRI, would replace this medication with anticoagulation based on the patient's recent DVT
Initiate atorvastatin 40 mg daily due to LDL greater than 70
D/W patient / family
All questions answered.
Will continue to follow patient.
Original Note:
Documented by User: Juliana Gomez NP 11/05/25 16:30
Neuro Assessment/Plan
Assessment
Patient is an unreliable historian. Information obtained by his chart and his daughters at bedside. Patient is an 85 y/o male past medical history of CKD IIIA and DVT/PE who presented to [facility] on 11/02/2025 with frequent falls, neurology asked to
evaluation for change in mental status.
Plan
-check MRI brain without contrast to evaluate for stroke
-CTA head/neck
-start ASA 81mg daily.
-check hemoglobin A1C. Goal is normoglycemia.
-check LDL goal <70
-PT/OT/ST evaluations
-DVT prophylaxis
-continue neurochecks and NIHSS per unit guidelines
-stroke education packet
All questions encouraged and answered, plan of care discussed with Dr. De Leon, patient and family
Consultation
Order
Date of Consultation: 11/05/25
Requesting Provider: hospitalist
Reason for Consult: change in mental status
Subjective/Objective
Subjective Data
Date of Service: November 05, 2025
Patient is an unreliable historian. Information obtained by his chart and his daughters at bedside. Patient is an 85 y/o male past medical history of CKD IIIA and DVT/PE who presented to [facility] on 11/02/2025 with frequent falls. Per his daughters,
patient seems more confused, less talkative since admission. On admission, patient was complaining of pain in his right calf, particularly with movement for the past 6 weeks. Today patient endorses pain in left foot. He was driving up until last
weekend and managing his finances without issue. His recent head CT showed no acute intracranial abnormality, chronic small vessel ischemic disease. Lab work unremarkable. He was on a heparin gtt for RLE DVT that was stopped today. Patient
complaining of headache. On exam patient oriented to self but not month or year. Right sided weakness noted. Per daughters, his confusion and right sided weakness are new findings. Brain MRI has been ordered. NIHSS 3 not a TNK candidate due to onset
of symptoms unclear.
Objective Data
Vital Signs
Temp Pulse Resp BP Pulse Ox
98.5 F 63 20 149/69 97
11/05/25 15:28 11/05/25 15:28 11/05/25 15:28 11/05/25 15:28 11/05/25 15:28
Lab Results
11/04/25 06:23
11/05/25 07:13
APTT 92.8 Sec (23.4-35.0) H 11/05/25 07:13
Sodium 137 mmol/L (135-145) 11/05/25 07:13
Potassium 3.5 mmol/L (3.5-5.1) D 11/05/25 07:13
BUN 24 mg/dl (9-20) H 11/05/25 07:13
Glucose 127 mg/dl (70-99) H 11/05/25 07:13
Calcium 8.8 mg/dl (8.4-10.2) 11/05/25 07:13
Vitamin B12 742 pg/ml (239-931) 11/05/25 07:13
Patient Allergies
No Known Allergies Allergy (Unverified 11/02/25 12:35)
CVA Assessment
Onset of Stroke Symptoms
Onset of symptoms known: No
Time pt last seen normal is known: No
NIH Stroke Score
Level of Consciousness: 0 - Alert
LOC Questions: 1-Answers one correctly
LOC Commands: 0-Performs both correctly
Best Horizontal Gaze: 0-Normal
Visual Arias: 0=Normal, no visual loss
Facial Palsy: 0=Normal, symmetrical
Motor - Right Arm: 1=Drift < 10 seconds
Motor - Left Arm: 0=No drift 10 seconds
Motor - Right Le-Drift < 5 seconds
Motor - Left Le-No drift 5 seconds
Limb Ataxia: 0-Absent
Sensation: 0-Normal
Best Language: 0-No aphasia
Dysarthria: 0-Normal
Extinction and Inattention: 0-No abnormality
NIH Total Score:: 3
Tenecteplase Contraindications
Inclusion and Exclusion criteria reviewed: Yes
Reasons for NON-Tx with Thrombolytics ABSOLUTE Exclusions: Time-out of window
IAT Contraindications: NIHSS < 6
Physical Exam
-
General: Appears Stated Age
HEENT: Normocephalic and Atraumatic
Respiratory: No Dyspnea
Cardiac: No JVD
GI: Non-distended
Skin: Unremarkable
Extremities: No Clubbing, No Cyanosis and No Edema
Psych: Confused
Extended Neurological Exam
Mood & Affect: Mood Unremarkable
Attention Span & Concentration: Awake, Alert, Interactive, Moderate Difficulty with 2 Step Request and Other (not oriented to month or year)
Memory: Unable to Recall
Involuntary Movement: None
Speech: Severely Reduced Output and Hoarse
Cranial Nerve II: Left Eye: Visual Arias Intact
Cranial Nerve II: Right Eye: Visual Arias Intact
Cranial Nerves III, IV, : Extraocular Movement: Extraocular Movement Full in all Directions
Cranial Nerve VII: Facial Symmetry: Normal Facial Symmetry
Cranial Nerve VIII: Hearing: Unremarkable Hearing to Normal Conversational Volume
Muscle Strength, Overall: Reduced on Right
Pronator Drift: Drift in Right Upper Extremity and Drift in Right Lower Extremity
Coordination: Other (unable to perform FTN on right)
Data Reviewed
-
CT Head: Report Reviewed and Image Reviewed
Medical Test Reports: Report Reviewed
Labs: Report Reviewed
Reviewed with: Physician, Patient and Family
Old Records: Summarized
Medications
-
Active Medications
Generic Name Dose Route Start Last Admin
Trade Name Freq PRN Reason Stop Dose Admin
Acetaminophen 650 mg 11/02/25 21:03 11/04/25 22:48
Acetaminophen 325 Mg Tablet PO 11/30/25 21:02 650 mg
Q4HPRN PRN Administration
mild pain/ fever>100.5F
Sodium Chloride 1,000 mls @ 100 mls/hr 11/05/25 13:45 11/05/25 14:22
Nss IV 1,000 mls
.Q10H MICHAEL Administration
Sodium Chloride 0 flush 11/02/25 22:00
Sodium Chloride 0.9% (Flush) Syringe IV 11/30/25 21:59
PER PROTOCOL MICHAEL
Home Medications
�Medication �Instructions �Recorded
No Meds [No Current Medications] 11/02/25

Documented by User: Arthur De Leon MD 11/05/25 17:26
CVA Assessment
NIH Stroke Score
NIH Total Score:: 3
--- NOTE | 2025-11-05 15:34 | CM ---
Addendum entered by Alana Gonzáles 11/05/25 16:20:
[facility] accepted [phone] [facility]; pending updated clinicals needed for patient saturday.
Original Note:
Family meeting with daughters, patient , physicians and patient seen at bedside. Patient family reviewed list of SNF options as sent via all scripts and will continue to look into options. patient for neurology consult and MRI at this time. CM
will continue to follow for discharge planning needs.
Plan; SNF pending medical treatment plan. will need auth.
--- NOTE | 2025-11-05 16:27 | PTOTSP ---
Speech Therapy Evaluation:
Pt with acute risk factors of dysphagia including current admission for confusion. Neuro workup ongoing. At bedside, oral phase prolonged. No overt s/sx of aspiration across trials. No CXR completed thus far, however pt without dysphagia hx, WBC
WNL, and pt on room air.
Recommend:
1. Regular solids and thin liquids
2. Meds as tolerated
3. Strict aspiration precautions
4. Close supervision with PO intake
5. RENAL DIALYSIS TECHNICIAN to follow to monitor tolerance of current diet level and determine if pt would benefit from instrumental assessment
[2025-11-05 16:31] LABS: HDL Cholesterol 75 mg/dl; LDL Cholesterol, Calculated 84 mg/dl; Very Low Density Lipoprotein 11 mg/dl (0-30)
[2025-11-05] MEDS: ASPIRIN 300 MG RECTAL (16:48)
[2025-11-05] MEDS: LIPITOR 40 MG PO (18:09)
[2025-11-05 23:00] VITALS: BP 155/69
[2025-11-06] MEDS: NSS 1000 IV ×3 (00:42→23:43)
[2025-11-06] MEDS: ASPIRIN 300 MG RECTAL (07:50)
[2025-11-06 08:15] LABS: Hematocrit 33.5 % (39.0-52.0); Hemoglobin 11.7 g/dL (13.0-18.0); Mean Corp Hgb Conc. 34.9 g/dL (33.0-37.0); Mean Corpuscular Volume 93.8 fL (80.0-94.0); Platelet Count 152 10^3/uL (130-400); Red Cell Dist. Width 11.9 % (11.5-14.5)
[2025-11-06] MEDS: TYLENOL 650 MG PO ×2 (08:18→23:44)
[2025-11-06 08:35] VITALS: BP 138/81
[2025-11-06 09:57] LABS: Blood Urea Nitrogen 26 mg/dl (9-20); Calcium 8.8 mg/dl (8.4-10.2); Carbon Dioxide 22 mmol/L (22-30); Chloride 106 mmol/L (98-107); Estimated Creatinine Clearance 49 ml/min; Glucose 116 mg/dl (70-99); Potassium 3.6 mmol/L (3.5-5.1); Sodium 136 mmol/L (135-145); eGFR > 60.00
--- NOTE | 2025-11-06 11:11 | VATNOTE ---
pt with right arm edema surrounding iv site, appears to be infiltrate from previous iv fluids, pt denies pain . piv removed, new piv established in left arm. right arm elevated, heat applied, will cont to monitor
--- NOTE | 2025-11-06 12:08 | W.PN.HOSP.TC ---
Addendum entered and electronically signed by Rosana Madsen MD 11/06/25 13:25:
I saw and evaluated the patient independently. I reviewed and discussed the resident�s note and agree with findings and plan as documented by Dr. Cortez.
GENERAL: well developed, well nourished, male in no apparent distress--awake and does answer questions but not carrying on a conversation
HEENT: NC/AT, very hard of hearing
HEART: regular rate and rhythm, +S1, +S2, holosystolic murmur
LUNGS : clear to auscultation bilaterally
ABDOM: soft, nontender, nondistended, + bowel sounds
EXT: right leg swollen and red
NEUROLOGIC: significant apparent dementia
acute change in mental status -- spoke with and 2 daughters (both daughters indicate that his current hospital presentation is MUCH different than before he came in)--encephalopathy, worsening dementia?, stroke--consult neuro (consult was
cancelled this AM by Dr. De Leon)--await MRI--stop IV heparin--TSH, folate, vit B12 all WNL--head and neck CTA without acute abnormalities or large vessel occlusions
headache--CT neg again--await MRI--add low dose ultram for now
right UE swelling--check US r/o DVT
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
Generalized Weakness/Frequent Falls/Confusion--hx of Dementia--MOCA 09/16--needs neuropsych testing--PT/OT-- states not baseline as current mental status decline has been the last 2 weeks (daughters dispute this and say last 2 DAYS)--apprec neuro
Cardiac Murmur (pansystolic), likely related to rheumatic heart disease--Echo with moderate aortic stenosis
CKD Stage IIIA--Renal function at baseline
DVT proph--IV heparin drip stopped
code status--full code
Original Note:
Today's Communication/Plan
-
Awaiting MRI brain, awaiting CTA head and neck,
Continue with IV fluids
Assessment / Plan
Assessment / Plan
85-year-old male past medical history of CKD 3A, prior DVT PE with history of IVC filter, rheumatic fever, presented after experiencing recurrent falls. Initial investigation with DVT on the right lower extremity.
#Right Lower Extremity DVT
- US with Occlusive thrombus throughout the popliteal vein extending into the peroneal and posterior tibial veins. Additionally there is nonocclusive thrombus within the distal femoral vein.
- s/p heparin bolus and heparin drip on hold since we are getting additional neuro workup for possible stroke
- heme input appreciated
- There is concern for safety with patient on anticoagulation given the history of frequent falls
#Generalized Weakness / Frequent Falls /acute change in mental status
# hx of Dementia
-Family reports patient has not been sleeping well
-COVID and Influenza negative
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
- Neuro recommendation appreciated ; current situation likely due to acute ischemic stroke
- Awaiting brain MRI
- CTA head and neck pending
- Neuro started aspirin 81 daily as well as atorvastatin 40 mg
- Patient refused to eat; continue with IV fluids
Head CT IMPRESSION:
No acute intracranial abnormality noted.
There are moderate periventricular and subcortical white matter hypodensities which are nonspecific although may be sequelae of moderate chronic small vessel ischemic disease. If there is high clinical suspicion for ischemia an MRI may be considered
for further evaluation.
#Cardiac Murmur(pansystiolic), likely related to rheumatic heart disease
- ECHO SUMMARY
1. Normal left ventricular chamber size with mild left ventricular hypertrophy, ejection fraction 6065%.
2. Moderate aortic stenosis with peak/mean gradient of 59/36 mmHg respectively, aortic valve area 1.3 cm².
#CKD Stage IIIA
-Renal function at baseline
Code Status: Full Code
DVT prophylaxis: Patient is on heparin drip
Anticipated Discharge: 24 - 48 hours
Subjective/Interval History
-
Date of Service: November 06, 2025
AFVSS. Patient is confused and not oriented. Arousable says ' no' to every question
Objective Data
-
Labs:
Laboratory Results
11/06/25
06:52
WBC 10.8
Hgb 11.7 L
Hct 33.5 L
Plt Count 152
Sodium 136
Potassium 3.6
Chloride 106
Carbon Dioxide 22
BUN 26 H
Creatinine 1.1
Glucose 116 H
Calcium 8.8
Vital Signs:
Vital Signs
Temp Pulse Resp BP Pulse Ox
98.5 F 71 19 138/81 97
11/06/25 08:35 11/06/25 08:35 11/06/25 08:35 11/06/25 08:35 11/06/25 08:35
I&O
11/05/25 11/06/25 11/07/25
06:59 06:59 06:59
Intake Total 720 / 720 810 / 810
Output Total 450 / 450 850 / 850
Balance 270 / 270 -40 / -40
Review of Systems
-
Unable to obtain full review of systems at this time due to: Dementia
History Source: Patient
Respiratory: Denies Trouble Breathing
Cardiac: Denies Chest Pain
Abdomen/GI: Denies Abdominal Pain
Neuro: Denies Headache or Weakness
Physical Exam
-
General: Comfortable and Appears Chronically Ill
Respiratory: Clear to Auscultation
Cardiac: Regular Rhythm, S1/S2 and Murmur (Pansystolic)
GI: Soft and Nontender
Genito-urinary: Other (Condom catheter)
Musculoskeletal: No Cyanosis
Skin: Warm and Other (Mild erythema of right lower extremity)
Neuro: Awake and Other (Oriented to time but not to place)
Psych: Confused
Data Reviewed
-
Labs: Labs Reviewed by me, Discussed with Physician and Discussed with Patient
[2025-11-06 12:15] LABS: Glycohemoglobin (HgbA1c) 5.7 % (4.0-5.9)
[2025-11-06] MEDS: ULTRAM 25 MG PO (13:09)
[2025-11-06 16:45] VITALS: BP 157/64
--- NOTE | 2025-11-06 16:45 | W.PN.UPDATE ---
Update Note
Progress Note Update
Head/neck CTA and brain MRI results reviewed. : Acute infarcts in the paramedian left frontal and left parietal lobes.
Updated the family ( and daughters) at length in person regarding these new updates.
Discussed the case with neurology (Dr. Salgado).
There is a concern that stroke is probably due to cryptogenic cardioembolic cause, given that patient also has DVT and in the absence of any high-grade atherosclerosis it would be appropriate to consider using Eliquis(apixaban).
In terms of the timing for the medication, neurology recommended to begin in the a.m.
Eliquis will continue for 3 months and patient will have a outpatient follow-up with neurology to discuss if there is any switch to ASA as appropriate at that time.
Given that there is a possibility of cardiac causes per neurology which should also try to get ambulatory cardiac monitoring test versus loop recorder and if there is a diagnosis of A-fib after that; anticoagulation will be lifelong with the stroke.
I will consult cardiology at this time for additional recommendation.
Patient has history of recurrent falls and also due to the risk of conversion to hemorrhagic stroke neurology recommended to treat conservatively with 5 mg twice daily starting from tomorrow morning.
Patient's family was updated on all above changes. Current rectal aspirin is discontinued. Order for Eliquis 5 mg twice daily starting from the morning has been placed.
[2025-11-06] MEDS: LIPITOR 40 MG PO (17:17)
[2025-11-06 23:00] VITALS: BP 154/75
--- NOTE | 2025-11-06 23:32 | W.PN.NEURO.1 ---
Today's Communication / Plan
-
- Restart apixiban 11/08, discontinue ASA/plavix, cardiology evaluation for ambulatory cardic monitoring vs implantable loop recorder
Neuro Assessment/Plan
Assessment
Dionicio Brown is an 85 y/o male past medical history of CKD IIIA and DVT/PE (recently on AC) who presented to [facility] on 11/02/2025 with frequent falls, found to have aphasia, right hemiparesis, and left frontal/parietal infarct. Neurological exam today
with expressive/Broca's aphasia and right hemiplegia, consistent with left MCA infarct. Etiology remains unclear however given concurrent DVT/PE consider hypercoagulable state vs atheroembolic from LICA stenosis.
He was previously on apixiban for recent DVT/PE for planned 3 months, however this was held in the setting of recent stroke. Extrapolating from recent studies on stroke in the setting of AFIB, current recommendations are to restart AC within 2 days
with initially NIHSS <8, which would be 11/08. Recommend outpatient ambualtory cardiac monitoring to determine if evidence of AFIB which would warrant lifetime anticoagulation.
Plan
- start apixiban 5 mg BID on 11/08
- duration of long-term AC to be determined at outpatient followup and pending cardiac monitoring for AFIB
- if no evidence of AFIB, would return to ASA 81 mg monotherapy after 3 months of anticoagulation for DVT
- DIScontinue aspirin and clopidogrel once starting apixiban
- outpatient ambulatory cardiac monitoring vs implantable loop recorder to evaluate for AFIB
- continue atorvastatin 40 mg daily
- check hemoglobin A1C. Goal is normoglycemia.
- PT/OT/ST evaluations
- BP goal normotension
- continue neurochecks and NIHSS per unit guidelines
-stroke education packet
-neurology will signoff, please reconsult for further questions
Subjective/Objective
Subjective Data
Date of Service: November 06, 2025
- MRI with left frontal and parietal infarcts
- Restarted apixiban 5 mg BID
Objective Data
Vital Signs
Temp Pulse Resp BP Pulse Ox
37.2 C 68 16 157/64 94
11/06/25 16:45 11/06/25 16:45 11/06/25 16:45 11/06/25 16:45 11/06/25 16:45
Lab Results
11/06/25 06:52
11/06/25 06:52
APTT 92.8 Sec (23.4-35.0) H 11/05/25 07:13
Sodium 136 mmol/L (135-145) 11/06/25 06:52
Potassium 3.6 mmol/L (3.5-5.1) 11/06/25 06:52
BUN 26 mg/dl (9-20) H 11/06/25 06:52
Glucose 116 mg/dl (70-99) H 11/06/25 06:52
Calcium 8.8 mg/dl (8.4-10.2) 11/06/25 06:52
LDL Cholesterol, Calc 84 mg/dl 11/05/25 07:13
Vitamin B12 742 pg/ml (239-931) 11/05/25 07:13
Patient Allergies
Reviewed labs: normocytic anemia (Hgb 11.7), B12 wnl.
No Known Allergies Allergy (Unverified 11/02/25 12:35)
MRI brain without contrast (11/06/25) Acute infarcts in the paramedian left frontal and left parietal lobes.
CT Brain: No acute intracranial process. Specifically, no evidence of acute hemorrhage.
CTA Head: No large vessel occlusion. There is mild stenosis of the right supraclinoid ICA and mild/moderate stenosis of the left supraclinoid ICA secondary to calcified atherosclerotic plaque.
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
TTE (11/03/25)
1. Normal left ventricular chamber size with mild left ventricular hypertrophy, ejection fraction 6065%.
2. Moderate aortic stenosis with peak/mean gradient of 59/36 mmHg respectively, aortic valve area 1.3 cm².
3. No prior echo for comparison.
LDL Level: Statin dose adjusted
Review of Systems
-
Unable to obtain full review of systems at this time due to: Language Barrier
Physical Exam
-
- Alert, oriented to person, place, and time with multiple choice questions
- Impaired naming of 50% of high frequency objects, impaired fluency, relatively preserved comprehension
- CNII-XII intact, apart from mild right nasolabial fold flattening
- Strength exam limited by participation, however antigravity on the left arm and leg, within the plane of bed on the right arm and leg
Data Reviewed
-
CT-A: Report Reviewed and Image Reviewed
CT Head: Report Reviewed and Image Reviewed
MRI Head: Report Reviewed and Image Reviewed
Echocardiogram: Report Reviewed
Labs: Report Reviewed
Lipid Profile: Report Reviewed
[2025-11-07 06:53] LABS: Hematocrit 29.0 % (39.0-52.0); Hemoglobin 10.1 g/dL (13.0-18.0); Mean Corp Hgb Conc. 34.8 g/dL (33.0-37.0); Mean Corpuscular Volume 91.8 fL (80.0-94.0); Platelet Count 160 10^3/uL (130-400); Red Cell Dist. Width 11.9 % (11.5-14.5)
[2025-11-07 07:00] VITALS: BP 140/61
--- NOTE | 2025-11-07 07:13 | W.PN.HOSP.TC ---
Addendum entered and electronically signed by Rosana Madsen MD 11/07/25 14:43:
I saw and evaluated the patient independently. I reviewed and discussed the resident�s note and agree with findings and plan as documented by Dr. Cortez.
GENERAL: well developed, well nourished, male in no apparent distress
HEENT: NC/AT, very hard of hearing
HEART: regular rate and rhythm, +S1, +S2, holosystolic murmur
LUNGS : clear to auscultation bilaterally
ABDOM: soft, nontender, nondistended, + bowel sounds
EXT: right leg swollen and red
NEUROLOGIC: significant apparent dementia
acute change in mental status -- spoke with and 2 daughters (both daughters indicate that his current hospital presentation is MUCH different than before he came in)--encephalopathy, worsening dementia?, stroke--consult neuro (consult was
cancelled this AM by Dr. De Leon)-- MRI with acute paramedian left frontal and parietal lobes--stopped IV heparin and placed on Eliquis--TSH, folate, vit B12 all WNL--head and neck CTA without acute abnormalities or large vessel occlusions--discussion
around doing KAT versus continuing treatment indefinitely--can pursue outpatient KAT if desired, if negative, may stop Eliquis in 3 months as planned originally but from his DVT--patient is a fall risk however and decision must be made as to
long-term anticoagulation--currently patient qualifies for SNF
headache--CT neg again--MRI as above--ultram for now
right UE swelling--check US r/o DVT--still pending--was originally ordered 11/06 at noon
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
Generalized Weakness/Frequent Falls/Confusion--hx of Dementia--MOCA 09/16--needs neuropsych testing--PT/OT-- states not baseline as current mental status decline has been the last 2 weeks (daughters dispute this and say last 2 DAYS)--apprec neuro
Cardiac Murmur (pansystolic), likely related to rheumatic heart disease--Echo with moderate aortic stenosis
CKD Stage IIIA--Renal function at baseline
DVT proph--IV heparin drip stopped, now on Eliquis
code status--full code
Original Note:
Today's Communication/Plan
-
starte eliquis
anticipate dc to snf in am
pt/ot assessment
Assessment / Plan
Assessment / Plan
85-year-old male past medical history of CKD 3A, prior DVT PE with history of IVC filter, rheumatic fever, presented after experiencing recurrent falls. Initial investigation with DVT on the right lower extremity.
#Right Lower Extremity DVT
- US with Occlusive thrombus throughout the popliteal vein extending into the peroneal and posterior tibial veins. Additionally there is nonocclusive thrombus within the distal femoral vein.
- s/p heparin bolus and heparin drip on hold since we are getting additional neuro workup for possible stroke
- heme input appreciated
- There was concern for safety with patient on anticoagulation given the history of frequent falls however given the findings of stroke and history of multiple DVTs, after discussion with the neurology team elected to start Eliquis 5 mg twice daily
#Acute CVA
#Generalized Weakness / Frequent Falls /acute change in mental status
# hx of Dementia
-COVID and Influenza negative
- PT/OT eval recs SNF; might need alf rehab
- brain MRI results reviewed. : Acute infarcts in the paramedian left frontal and left parietal lobes.
- CTA head and neck noted
- started eliquis 5mg bid per neuro recs
- continue with atorvastatin 40 mg
- Patient started to eat; continue with IV fluids for now
- Eliquis will continue for 3 months and patient will have a outpatient follow-up with neurology to discuss if there is any switch to ASA as appropriate at that time.
-- Family was updated at length at bedside. Overall patient is much more alert today. Able to answer simple questions and respond to commands.
Head CT IMPRESSION:
No acute intracranial abnormality noted.
There are moderate periventricular and subcortical white matter hypodensities which are nonspecific although may be sequelae of moderate chronic small vessel ischemic disease.
# Right UE swelling
- US pending
#Cardiac Murmur(pansystiolic), likely related to rheumatic heart disease
- ECHO SUMMARY
1. Normal left ventricular chamber size with mild left ventricular hypertrophy, ejection fraction 6065%.
2. Moderate aortic stenosis with peak/mean gradient of 59/36 mmHg respectively, aortic valve area 1.3 cm².
- cardio consulted for possible cardiac workup/monitoring for cause of stroke ; if there is any arrhythmia/A-fib it will warrant lifelong continuation of Eliquis
#CKD Stage IIIA
-Renal function at baseline
Code Status: Full Code
DVT prophylaxis: Patient is on Eliquis
Anticipated Discharge: Within 24 hours
Subjective/Interval History
-
Date of Service: November 07, 2025
AFVSS. States that he is feeling ' normal' no new complaint
Objective Data
-
Labs:
Laboratory Results
11/07/25
06:25
WBC 10.9 H
Hgb 10.1 L
Hct 29.0 L
Plt Count 160
Sodium Pending
Potassium Pending
Chloride Pending
Carbon Dioxide Pending
BUN Pending
Creatinine Pending
Glucose Pending
Calcium Pending
Vital Signs:
Vital Signs
Temp Pulse Resp BP Pulse Ox
99.8 F 97 24 154/75 95
11/06/25 23:00 11/06/25 23:00 11/06/25 23:00 11/06/25 23:00 11/06/25 23:00
I&O
11/06/25 11/07/25 11/08/25
06:59 06:59 06:59
Intake Total 810 / 810 600 / 600
Output Total 850 / 850
Balance -40 / -40 600 / 600
Review of Systems
-
Unable to obtain full review of systems at this time due to: Dementia
History Source: Patient
Respiratory: Denies Trouble Breathing
Cardiac: Denies Chest Pain
Abdomen/GI: Denies Abdominal Pain
Neuro: Denies Headache or Weakness
Physical Exam
-
General: Comfortable and Appears Chronically Ill
Respiratory: Clear to Auscultation and Non Labored Respirations
Cardiac: Regular Rhythm, S1/S2 and Murmur (Pansystolic)
GI: Soft and Nontender
Genito-urinary: Other (Condom catheter)
Musculoskeletal: No Cyanosis and Edema, Right Upper Extrem
Skin: Warm and Other (Mild erythema of right lower extremity)
Neuro: Awake, Alert and Other (Oriented to time but not to place, sensory exam in the bilateral upper and lower extremity intact.)
Psych: Calm
Data Reviewed
-
Labs: Labs Reviewed by me, Discussed with Physician and Discussed with Patient
[2025-11-07 07:40] LABS: Blood Urea Nitrogen 29 mg/dl (9-20); Calcium 8.3 mg/dl (8.4-10.2); Carbon Dioxide 19 mmol/L (22-30); Chloride 107 mmol/L (98-107); Estimated Creatinine Clearance 41 ml/min; Glucose 130 mg/dl (70-99); Potassium 3.7 mmol/L (3.5-5.1); Sodium 131 mmol/L (135-145); eGFR 53.17
[2025-11-07] MEDS: ELIQUIS 5 MG PO ×2 (09:10→20:31)
--- NOTE | 2025-11-07 09:45 | VATNOTE ---
patient continues with right arm edema+1-2, no noted change. pt denies discomfort to area, pt resting
[2025-11-07 11:00] VITALS: BP 143/61
[2025-11-07] MEDS: NSS 1000 IV ×2 (11:04→23:33)
--- NOTE | 2025-11-07 13:01 | CM ---
Met with daughter Lori and Irene along with hospitalist
patient to be discharged tomorrow per hospitalist
Requested [facility] to eval patient today as CM will need to obtain auth tomorrow
per they most likely want [facility] -will confirm with CM
CM left message with Yolande worthy at [facility] regarding bed availability tomorrow & placed note in [facility] for NPI's
PLAN: SNF, will need ins auth.
--- NOTE | 2025-11-07 13:16 | CON.CAR ---
Consultation
Consultation Request
Date/Time Consultation Requested: November 07, 2025
Date/Time Consultation Performed: November 07, 2025
Requesting Provider: Hospitalist
Performing Provider: Dr. Avni Guerra
Reason for Consultation: Cryptogenic stroke
Medical History
-
Chief Complaint: Change in mental status, found to have CVA
History of Present Illness:
Patient was admitted to [facility] November 02, 2025 after he was found to have DVT. He had been complaining of right calf pain for approximately 6 weeks. Evaluation then found him to have occlusive thrombus throughout the popliteal vein
extending into the peroneal/posterior tibial veins.
Of note medical record shows that he has prior IVC filter related to pulmonary embolus from 20 years ago.
On 11/05/2025 he was noted to have abrupt onset of aphasia as well as right upper and right lower extremity weakness. This was suggestive of stroke.
Brain MRI findings Acute infarcts in the paramedian left frontal and left parietal lobes and there is concern for embolic source.
Past medical history:
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
Chronic kidney disease stage III AA
Frequent falls
Rheumatic fever as a child
Social History
Tobacco: Non-Smoker
Alcohol: None
Drug: None
Personal:
Living: With Family
Allergies / Home Medications
Allergy/AdvReac Type Severity Reaction Status Date / Time
No Known Allergies Allergy Unverified 11/02/25 12:35
�Medication �Instructions �Recorded �Confirmed �Type
No Meds [No Current Medications] 11/02/25 11/02/25 History
Review of Systems
-
History Source: Patient and Family
All other systems: Negative unless noted
Constitutional: No Symptoms
EENT: No Symptoms
Respiratory: No Symptoms
Cardiac: No Symptoms
Abdomen/GI: No Symptoms
: No Symptoms
Neurological: Other
Physical Exam
Vital Signs
Temp Pulse Resp BP Pulse Ox
98.3 F 69 16 140/61 95
11/07/25 07:00 11/07/25 07:00 11/07/25 07:00 11/07/25 07:00 11/07/25 07:00
Lab Results
11/07/25 06:25
11/07/25 06:25
Physical Exam
General: Well Developed, Well Nourished and No Apparent Distress
HEENT: Normocephalic, Anicteric and Moist Mucous Membranes
Respiratory: Clear
Cardiac: S1/S2 and Regular Rhythm
Breast: Deferred by me
GI: Soft, Non Tender, Non Distended and Normal Bowel Sounds
Rectal: Deferred by Provider
Musculoskeletal: No Clubbing, No Cyanosis and Edema (trace pre-tibioal edema b/l)
Skin: Warm and Dry
Neuro: Awake, Alert and Oriented
Psych: Calm
Impression / Plan
-
Assessment/plan
Cryptogenic acute CVA
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
Chronic kidney disease stage III AA
Frequent falls
Rheumatic fever as a child
CT Brain: No acute intracranial process. Specifically, no evidence of acute hemorrhage.
CTA Head: No large vessel occlusion. There is mild stenosis of the right supraclinoid ICA and mild/moderate stenosis of the left supraclinoid ICA secondary to calcified atherosclerotic plaque.
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
Mild atherosclerotic calcifications of the bilateral carotid bifurcations without significant stenosis.
MRI: Restricted diffusion in the paramedian left frontal and left parietal lobes consistent with acute infarcts.
Echocardiogram 11/03/2025:
Normal left ventricular chamber size with mild left ventricular hypertrophy, ejection fraction 6065%.
Moderate aortic stenosis with peak/mean gradient of 59/36 mmHg respectively, aortic valve area 1.3 cm².
There is no visualization of intracardiac shunt
Presenting with recurrent DVT
Also found to have acute CVA and cardiology is asked regarding further evaluation of cryptogenic CVA.
If he is planned for lifelong oral anticoagulation then would simply continue oral anticoagulation for recurrent DVT then no need for transesophageal echocardiogram or consideration for loop recorder.
While from a neurologic standpoint it may be that oral anticoagulation might be stopped down the road, given that he has had recurrent symptomatic DVTs I would imagine that he would require lifelong oral anticoagulation.
Please let us know the plan regarding anticoagulation.
If he is not planned for lifelong oral anticoagulation unless atrial fibrillation or [id number] intracardiac shunt is found, then
It is reasonable to proceed with transesophageal echocardiogram
Implantation of loop recorder to assess for atrial fibrillation if transesophageal echocardiogram
If he is planned for lifelong oral anticoagulation given recurrent deep venous thrombosis then I would not proceed with KAT or loop recorder consideration
Please let us know and we can make further recommendations.
Also, currently not on tele, will order tele monitoring while here.
Also with moderate
Seems asymptomatic
Will need outpatient follow-up
I met with his and granddaughter at the bedside and all of their questions and the patient's questions answered.
Total time spent today was 75 minutes in preparing to see the patient, seeing the patient and coordination of care. This included review of recent laboratory evaluations, cardiact testing, imaging studies, primary care rtecords, specialty
consultations, hospital records, as well as personally interviewing and examining the patient, which included discussion of their tests, review/ordering medications, and communicating with other healthcare professionals and also treatment planning
as well as counseling.
Total time does not include separately billed tests performed on this date of service.
Data Reviewed
-
EKG: Tracing Personally Visualized and interpreted
Radiology: Report Reviewed by me
CT Scan: Report Reviewed by me
Ultrasound: Report Reviewed by me
MRI: Report Reviewed by me
Medical Tests (Nuc Med, Echo etc): Report Reviewed by me
Labs: Labs Reviewed by me
[2025-11-07] MEDS: TYLENOL 650 MG PO (13:51)
[2025-11-07 15:36] VITALS: BP 128/61; PULSE 79
[2025-11-07 15:50] VITALS: BP 107/49
[2025-11-07] MEDS: LIPITOR 40 MG PO (17:04)
[2025-11-07 19:00] VITALS: BP 130/65
[2025-11-07 23:00] VITALS: BP 164/72
[2025-11-08] VITALS (8 sets, daily range): BP systolic 132–174; BP diastolic 63–85; PULSE 84–87; O2SAT 95
[2025-11-08] MEDS: NSS IV (00:46)
[2025-11-08 05:51] LABS: Hematocrit 31.3 % (39.0-52.0); Hemoglobin 10.8 g/dL (13.0-18.0); Mean Corp Hgb Conc. 34.5 g/dL (33.0-37.0); Mean Corpuscular Volume 91.0 fL (80.0-94.0); Platelet Count 210 10^3/uL (130-400); Red Cell Dist. Width 11.9 % (11.5-14.5)
[2025-11-08 06:11] LABS: Blood Urea Nitrogen 27 mg/dl (9-20); Calcium 8.8 mg/dl (8.4-10.2); Carbon Dioxide 19 mmol/L (22-30); Chloride 109 mmol/L (98-107); Estimated Creatinine Clearance 49 ml/min; Glucose 128 mg/dl (70-99); Potassium 3.7 mmol/L (3.5-5.1); Sodium 134 mmol/L (135-145); eGFR > 60.00
--- NOTE | 2025-11-08 07:24 | W.PN.HOSP.TC ---
Addendum entered and electronically signed by Asad Valverde MD 11/09/25 08:20:
Dictation error; stroke is LIKELY explanation for confusion
Addendum entered and electronically signed by Asad Valverde MD 11/08/25 14:40:
I saw and evaluated the patient. I reviewed the resident�s note and agree with findings and plan as documented in the resident�s note.
Acute stroke/confusion -- MR brain showing Acute infarcts in the paramedian left frontal and left parietal lobes. Initially mentation change was felt to be related to other causes although MRI brain showing stroke unlikely explanation.
Cardiology/neurology was involved in care and there was consideration for KAT although patient is high risk and also patient requires to be on Eliquis for right lower extremity DVT. Patient is planned to be maintained on Eliquis KAT/rhythm
monitoring has been deferred as it would not change the treatment plan. Had discussion with family and in agreement. Unfortunately patient has risk of fall and future anticoagulation plan may has to be adjusted. Will require close monitoring with
outpatient cardiology follow-up. Physiatry has been consulted for evaluation of acute rehab placement
Right lower extremity DVT. History of DVT/PE -patient has remote history of DVT PE approximately 20 years back and had IVC filter placed at that time. No clear reason was found at that time. Right lower extremity venous Doppler showing occlusive
thrombus throughout popliteal vein extending into peroneal and posterior tibial vein. Patient also have right upper extremity swelling and venous Doppler is pending. Patient will require continuation of DOAC for treatment of DVT with PE. Due to
new stroke but was decided for patient to be started on maintenance dose of 5 mg twice daily and not to be loaded with first with 10 mg twice daily dosing.
hx of Dementia--MOCA 09/16. no behavioral issues in the hospital. continue supportive care.
Moderate aortic stenosis - echo reviewed.
CKD Stage IIIA--Renal function at baseline
DVT proph- eliquis
code status--full code
Evaluation for need of acute rehab placement
Original Note:
Today's Communication/Plan
-
Awaiting ultrasound right upper extremity
PMR consult
Discontinue IV fluid
Assessment / Plan
Assessment / Plan
85-year-old male past medical history of CKD 3A, prior DVT PE with history of IVC filter, rheumatic fever, presented after experiencing recurrent falls. Initial investigation with DVT on the right lower extremity.
#Right Lower Extremity DVT
- US with Occlusive thrombus throughout the popliteal vein extending into the peroneal and posterior tibial veins. Additionally there is nonocclusive thrombus within the distal femoral vein.
- s/p heparin bolus and heparin drip on hold since we are getting additional neuro workup for possible stroke
- heme input appreciated
- There was concern for safety with patient on anticoagulation given the history of frequent falls however given the findings of stroke and history of multiple DVTs, after discussion with the neurology team elected to start Eliquis 5 mg twice daily
#Acute CVA
#Generalized Weakness / Frequent Falls /acute change in mental status
# hx of Dementia
-COVID and Influenza negative
- brain MRI results reviewed. : Acute infarcts in the paramedian left frontal and left parietal lobes.
- CTA head and neck noted
- started eliquis 5mg bid per neuro recs ; will continue
- continue with atorvastatin 40 mg
- Patient started to eat; we can d/c ivf at this time
- Eliquis will continue for 3 months and patient will have a outpatient follow-up with neurology to discuss if there is any switch to ASA as appropriate at that time.
-- Family was updated at bedside. Overall patient is much more alert. Able to answer simple questions and respond to commands. Family more interested to continue anticoagulation lifelong versus doing a KAT
PT recommended acute rehab; PMR consult placed
Head CT IMPRESSION:
No acute intracranial abnormality noted.
There are moderate periventricular and subcortical white matter hypodensities which are nonspecific although may be sequelae of moderate chronic small vessel ischemic disease.
# Right UE swelling
- US pending
#Cardiac Murmur(pansystiolic), likely related to rheumatic heart disease
- ECHO SUMMARY
1. Normal left ventricular chamber size with mild left ventricular hypertrophy, ejection fraction 6065%.
2. Moderate aortic stenosis with peak/mean gradient of 59/36 mmHg respectively, aortic valve area 1.3 cm².
- cardio consulted for possible cardiac workup/monitoring for cause of stroke ; if there is any arrhythmia/A-fib it will warrant lifelong continuation of Eliquis
#CKD Stage IIIA
-Renal function at baseline
Code Status: Full Code
DVT prophylaxis: Patient is on Eliquis
Anticipated Discharge: Today
Subjective/Interval History
-
Date of Service: November 08, 2025
AFVSS. Offers no new complaints.
Objective Data
-
Labs:
Laboratory Results
11/08/25
05:24
WBC 11.0 H
Hgb 10.8 L
Hct 31.3 L
Plt Count 210 D
Sodium 134 L
Potassium 3.7
Chloride 109 H
Carbon Dioxide 19 L
BUN 27 H
Creatinine 1.1
Glucose 128 H
Calcium 8.8
Vital Signs:
Vital Signs
Temp Pulse Resp BP Pulse Ox
99.4 F 71 18 165/69 94
11/08/25 03:00 11/08/25 03:00 11/08/25 03:00 11/08/25 03:00 11/08/25 03:00
I&O
11/07/25 11/08/25 11/09/25
06:59 06:59 06:59
Intake Total 600 / 600 480 / 480
Output Total 575 / 575
Balance 600 / 600 -95 / -95
Review of Systems
-
Unable to obtain full review of systems at this time due to: Dementia
History Source: Patient
Respiratory: Denies Trouble Breathing
Cardiac: Denies Chest Pain
Abdomen/GI: Denies Abdominal Pain
Neuro: Denies Headache or Weakness
Physical Exam
-
General: Comfortable and Appears Chronically Ill
Respiratory: Clear to Auscultation and Non Labored Respirations
Cardiac: Regular Rhythm, S1/S2 and Murmur (Pansystolic)
GI: Soft and Nontender
Genito-urinary: Other (Condom catheter)
Musculoskeletal: No Cyanosis and Edema, Right Upper Extrem
Skin: Warm and Other (Mild erythema of right lower extremity; overall significantly improved)
Neuro: Awake, Alert and Other (Oriented to time but not to place, sensory exam in the bilateral upper and lower extremity intact.)
Psych: Calm
Data Reviewed
-
Labs: Labs Reviewed by me, Discussed with Physician and Discussed with Patient
[2025-11-08] MEDS: ELIQUIS 5 MG PO ×2 (07:41→21:29)
[2025-11-08] MEDS: NSS 1000 IV (10:37)
--- NOTE | 2025-11-08 10:53 | W.PN.CARDCBS ---
Addendum entered and electronically signed by Elton Askew MD 11/08/25 13:02:
I saw and examined the patient.
The TURNING AND BEADING MACHINE OPERATOR or PA's note was reviewed and I agree with the note.
Comment: General: Well developed, well nourished in NAD.
Neck: Supple, no JVD, HJR, carotids +2 B/L, no bruits bilaterally.
Heart: Non displaced PMI, RRR, no murmurs, No S3, S4, no rubs.
Lungs: Scattered rhonchi
Extremities: No clubbing, cyanosis or edema bilaterally.
Neuro: Grossly nonfocal, awake, alert and oriented x3.
Telemetry with brief atrial tach versus A-fib. KAT has been canceled as patient will be anticoagulated for DVT for least 3 months anyway. Family does not want to pursue a KAT at this point as well. Unclear if patient will be a long-term
anticoagulation candidate but this can be resolved while in inpatient rehab. Discussed with at bedside. Eventual 2-week monitor to be done as an outpatient. Will sign off, call with questions
Original Note:
Today's Communication / Plan
-
Start anticoagulation Eliquis 5 mg twice a day
Consider outpatient 2-week monitor in follow up
Hold on KAT for now
Plan is for patient to go to acute rehab
Impression / Plan
-
PCP: Bright Julian
Cancer Program Coordinator: None prior to admission, initial consultation Dr. Avni Guerra
Impression:
Presented 11/02/2025 with falls, fatigue and right calf pain
Acute Occlusive right popliteal DVT extending into peroneal and posterior tibial veins
Cryptogenic acute CVA
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
Moderate aortic stenosis
Chronic kidney disease stage III AA
Frequent falls
Rheumatic fever as a child
CT Brain: No acute intracranial process. Specifically, no evidence of acute hemorrhage.
CTA Head: No large vessel occlusion. There is mild stenosis of the right supraclinoid ICA and mild/moderate stenosis of the left supraclinoid ICA secondary to calcified atherosclerotic plaque.
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
Mild atherosclerotic calcifications of the bilateral carotid bifurcations without significant stenosis.
MRI: Restricted diffusion in the paramedian left frontal and left parietal lobes consistent with acute infarcts.
Echocardiogram 11/03/2025:Normal left ventricular chamber size with mild left ventricular hypertrophy, ejection fraction 60-65% Moderate aortic stenosis with peak/mean gradient of 59/36 mmHg respectively, aortic valve area 1.3 cm2. There is no
visualization of intracardiac shunt
Plan:
Presented 11/02/2025 with falls, fatigue and right calf pain and found to have recurrent DVT
Found to have acute frontal and parietal stroke on brain imaging and cardiology is asked regarding further evaluation of cryptogenic CVA. With residual right-sided weakness
He has been cleared by neurology for initiation of OAC on 11/08/2025. Given stroke neurology did not want DVT dosing. Now on Eliquis 5 mg BID.
Patient has had recurrent DVT now new stroke. If plan is lifelong oral anticoagulation then would simply continue oral anticoagulation and no need for KAT or Loop. Consider outpatient monitor for assessment of PAF prior to Implantable cardiac
monitor.
Now on telemetry. Brief run of tachycardia a.m. of 11/08/2025 appears to be sinus tachycardia with PACs versus atrial tachycardia.
Moderate on echo. Seems asymptomatic. Will need outpatient follow-up
Plan discussed with hospitalist/resident, nursing and patient's who is at bedside
History of Present Illness 11/07/2025:
Patient was admitted to [facility] November 02, 2025 after he was found to have DVT. He had been complaining of right calf pain for approximately 6 weeks. Evaluation then found him to have occlusive thrombus throughout the popliteal vein
extending into the peroneal/posterior tibial veins.
Of note medical record shows that he has prior IVC filter related to pulmonary embolus from 20 years ago.
On 11/05/2025 he was noted to have abrupt onset of aphasia as well as right upper and right lower extremity weakness. This was suggestive of stroke.
Brain MRI findings Acute infarcts in the paramedian left frontal and left parietal lobes and there is concern for embolic source.
Progress Note - Cancer Program Coordinator
Subjective
Date of Service: November 08, 2025
Patient seen and examined. Patient's at bedside. Patient in and out of sleep
Objective
Labs:
11/08/25 05:24
11/08/25 05:24
Labs
Hgb 10.8 g/dL (13.0-18.0) L 11/08/25 05:24
Hct 31.3 % (39.0-52.0) L 11/08/25 05:24
Plt Count 210 10^3/uL (130-400) D 11/08/25 05:24
APTT 92.8 Sec (23.4-35.0) H 11/05/25 07:13
Sodium 134 mmol/L (135-145) L 11/08/25 05:24
Potassium 3.7 mmol/L (3.5-5.1) 11/08/25 05:24
BUN 27 mg/dl (9-20) H 11/08/25 05:24
Creatinine 1.1 mg/dL (0.7-1.3) 11/08/25 05:24
Glucose 128 mg/dl (70-99) H 11/08/25 05:24
Vital Signs and I&O:
Vital Signs
Temp Pulse Resp BP Pulse Ox
99.2 F 67 18 149/74 99
11/08/25 07:35 11/08/25 07:35 11/08/25 07:35 11/08/25 07:35 11/08/25 07:35
Vital Signs
Temp Pulse Resp BP Pulse Ox
99.2 F 67 18 149/74 99
11/08/25 07:35 11/08/25 07:35 11/08/25 07:35 11/08/25 07:35 11/08/25 07:35
Intake & Output
11/06/25 11/07/25 11/08/25 11/09/25
06:59 06:59 06:59 06:59
Intake Total 810 / 810 600 / 600 480 / 480
Output Total 850 / 850 575 / 575
Balance -40 / -40 600 / 600 -95 / -95
Physical Exam
Physical Exam
GEN: No distress, sleepy but arousable
HEENT: supple, anicteric, mmm
LUNGS: CTA, no wheezes/rales
CV: Reg, S1/S2, 2/6 harsh radiating murmur
ABD: soft, BS+, NT/ND
EXT: No edema, clubbing or cyanosis
NEURO: Sleepy but follows simple commands, right sided weakness
SKIN: No rash, warm, dry, pink
[2025-11-08] MEDS: LIPITOR 40 MG PO (17:04)
--- NOTE | 2025-11-08 17:11 | CON.MD ---
Consultation - Medical
-
Chief Complaint:�Stroke
�
History of Present Illness:�85-year-old male with PMH (as below) presented to [facility] on 11/02/2025 with frequent falls. He was also having right calf pain for approximately [address] head with no acute intracranial abnormality.
Moderate periventricular and subcortical white matter hypodensities which are nonspecific. MRI noting acute infarction in the paramedian left frontal and left parietal lobes. Aspirin and Plavix stopped by neurology and patient was placed on
apixaban for DVT. Once okay to be off anticoagulation because of DVT, neurology would consider aspirin 81 mg monotherapy if no evidence of A-fib during repeat cardiac monitoring. Seen by cardiology with atrial tachycardia versus A-fib. KAT was
canceled due to patient being anticoagulated for acute right popliteal occlusive DVT for at least 3 months and family refusing KAT at this point. Eventual 2-week monitor as an outpatient. Had a MoCA 10/30 with no behavioral issues noted in the
hospital.
Patient is an inconsistent historian. His daughter and granddaughter at bedside able to provide further details. Patient is confused, has been doing a little bit better with verbal output and information per the daughter and granddaughter. Is a
little bit more awake and interactive with following commands per family.
�
Past Medical History:�CKD stage III AA, DVT/PE, rheumatic fever as a child, moderate aortic stenosis, dementia
Procedure History:�Right hip replacement, right total knee replacement, [place] filter placed 20 years ago for PE/DVT
Family History:�None pertinent
�
Social History:�
Functional Level Premorbidly:�Independent with all activities�
Functional Level Currently:�Dependent for ADLs, max assist of 2 for bed mobility. OT suggesting SNF. Dependent for transfers.
�
Tobacco:�Denies�
Alcohol:�Denies�
Drug use:�Denies�
�
Lives with:�
24-hour assistance available:�Yes
Number of floors:�2
# steps to enter:�3
# steps to second floor: Full flight
Potential First floor set up:�No
Driving:�Yes
Occupation:�Retired
�
�
Allergies:�
Allergy/AdvReac Type Severity Reaction Status Date / Time
No Known Allergies Allergy Unverified 11/02/25 12:35
�
Review of Systems:�Limited verbal output, denies any significant concerns except for being tired, no pain
Constitutional: (x) abNormal _tired
Eye: (x) Normal _
Ear/Nose/Throat: (x) Normal _
Respiratory: (x) Normal _
Cardiovascular: (x) Normal _
Gastrointestinal: (x) Normal _
Genitourinary: (x) Normal _
Musculoskeletal: (x) Normal _
Integumentary: (x) Normal _
Neurologic: (x) Normal _
�
Medications:�
Active Current Visit Medication List
Category Date Time Status
Acetaminophen [Tylenol] Med 11/02/25 21:03 Active
650 mg PO Q4HPRN PRN
Apixaban [Eliquis] Med 11/07/25 08:00 Active
5 mg PO BID
Atorvastatin [Lipitor] Med 11/05/25 18:00 Active
40 mg PO QPM
Flush (0.9% Sodium Chloride) [Flush (Nss)] Med 11/02/25 22:00 Active
See Dose Instructions IV PER PROTOCOL
Tramadol HCl [Ultram] Med 11/06/25 12:34 Active
25 mg PO Q6HPRN PRN
�
Vitals:�
Temp Pulse Resp BP Pulse Ox
98.4 F 69 20 132/63 97
11/08/25 15:48 11/08/25 15:48 11/08/25 15:48 11/08/25 15:48 11/08/25 15:48
Height 6 ft
Actual Weight 73.113 kg
Body Mass Index (BMI) 21.9
�
Physical Exam:�
General Appearance/Observation: Well-developed, well-nourished male in no apparent distress.�
Pain/Comfort Assessment: Denies�
Mood/Affect: Somewhat flat�
Integumentary/Operative Site:�No lesions noted during course of exam, has IV
�
Eyes: Conjunctiva/Lids: normal��� Pupils: pupils equal round and reactive to light
Ears/Nose/Throat: oral mucosa somewhat dry, throat clear.������������ Lips/Teeth/Gums: normal
Cardiovascular: Heart: regular, no murmur�
Pulses: dorsalis pedis 2+ bilaterally�
Respiratory: Respiratory Effort/Chest Expansion: normal������ Auscultation: Clear to auscultation bilaterally
Gastrointestinal: abdomen not tender, no distension, normal abdominal bowel sounds
Genitourinary: No Hankins�
Rectal Exam: Deferred�
Extremities:�Edema: Right upper extremity edema, bilateral lower extremity edema�cyanosis: None�Trophic�changes: None
�
Neurology Exam:
Orientation: Alert, Oriented to self, not place or time
Memory: Impaired
Repetition: Impaired
Comprehension: Impaired
Two step command: Impaired
Cranial Nerves:
�� CNII:�Pupillary light reflex: Intact���Visual Field: Difficult to assess with cognition
�� CN III, IV, : Extraocular muscles: Intact�
�� CN V:�Facial Sensation�at�Forehead: Intact,�Maxilla: Intact,�Mandible: Intact
�� CN VII:�Facial movement: Mild decrease right facial
�� CN VIII:�Hearing: Normal
�� CN IX/X:�Speech & swallow: Aphasia,�Position of Uvula: Midline
�� CN XI:�Shoulder shrug: Symmetric
�� CN XII:�Tongue protrusion: Midline
Sensory:
�� Light touch: Appears intact in bilateral upper and lower extremities
�
Reflexes:
�� Biceps: 2+ bilaterally
�� Brachioradialis: 2+ bilaterally
�� Triceps: 2+ bilaterally
�� Patellar: 2+ bilaterally
�� Achilles: 2+ bilaterally
�� Babinski: Down going bilaterally
�� Clonus: None
�� Duran: Negative bilaterally�
Cerebellar: Dysmetria/Ataxia: None�
Musculoskeletal: Motor: (Manual muscle scale 0-5)�
Muscle SA EF WE EE FF FA HF KE DF EHL PF
Right� 4 5 5 5 4 4 5 5 5 5 5
Left 4 5 5 5 4 4 5 5 5 5 5
�
Tone: Normal in all extremities�
Range of Motion: Passively within normal limits in all extremities�
�
Lab Results
Laboratory Data
11/08/25 05:24
11/08/25 05:24
APTT 92.8 Sec (23.4-35.0) H 11/05/25 07:13
Total Bilirubin 1.0 mg/dl (0.2-1.3) 11/02/25 12:56
AST 33 U/L (17-59) 11/02/25 12:56
ALT 17 U/L (0-50) 11/02/25 12:56
Alkaline Phosphatase 97 U/L (38-126) 11/02/25 12:56
Total Protein 7.5 g/dl (6.3-8.2) 11/02/25 12:56
Albumin 4.1 g/dl (3.5-5.0) 11/02/25 12:56
�
Diagnostic Results:�as per HPI�
�
Assessment
85-year-old right-handed [facility] (CKD stage III AA, DVT/PE, rheumatic fever as a child, moderate aortic stenosis, dementia�) with 11/02/2025 with frequent falls from acute infarction in the paramedian left frontal and left parietal lobes and acute
right popliteal occlusive DVT resulting in ADL and ambulatory dysfunction
�
Plan�
PM&R�PT/OT to increase independence with ADLs, improve balance, coordination, endurance, strength, mobility, community reintegration, decreased burden of care on others and family education.�
�
CVA: Secondary prophylaxis with Eliquis for 3 months for DVT and if no A-fib plan to transition to aspirin 81 mg daily per neurology, statin, and blood pressure control (SBP less than 180 and diastolic less than 100 to participate with therapy for
ischemic stroke). Continue to monitor neurologic status.�
Cognitive dysfunction: OT and speech
Aphasia: Speech
Acute right lower extremity DVT: Eliquis for 3 months
Right upper extremity edema: Could do Doppler to see if there is a DVT. Already on treatment for lower extremity DVT.
Leukocytosis: Trending up, monitor for aspiration. Aspiration precautions.
�
Psych: Psychology consult.� Monitor mood, adjust medications as needed.�
Skin: monitor for pressure sores/rashes/lesions.� At risk for pressure injury, weight shift. Spoke with patient, daughter and granddaughter at bedside.
Pain: acetaminophen as needed.�
Bowel: Colace and Senna, PRN bisacodyl.�
Bladder: Time void, PVRs, PRN straight cath.�
GI Prophylaxis: Pantoprazole�
Pulmonary: Incentive spirometry�
Safety: Continue to reinforce assistance with all transfers.�
Code Status:� Full code
Dispo�(date/plan/equipment needs): Home with family care.� Social history reviewed.�
Functional and Medical Goals:�Modified Independent with ADL�s, ambulation, transfers�
Discharge Destination:�After review of current ability to participate in therapy, I do not think ability tolerate 3 hours of therapy at this time. He should transition to a fdc facility. He could go to a fdc facility and if
making significant improvements could consider transfer to acute rehabilitation at that time.
A total of 60 minutes were spent with the patient preparing for the evaluation, obtaining history, performing examination and evaluation, counseling, data review, case management, care coordination, work order clerk, and EMR documentation.
�
Thank you for allowing me to care for your patient. Please contact me with any questions or concerns.
Consultation
-
Date/Time Consultation Requested: 11/08/25
Date/Time Consultation Performed: 11/08/25
Requesting Provider: Dr. Asad Valverde
Performing Provider: Dr. Shola Reyes
Reason for Consultation: Stroke
[2025-11-09] VITALS (8 sets, daily range): BP systolic 123–169; BP diastolic 39–79; PULSE 78–93; O2SAT 97
[2025-11-09 06:45] LABS: Blood Urea Nitrogen 25 mg/dl (9-20); Calcium 8.8 mg/dl (8.4-10.2); Carbon Dioxide 18 mmol/L (22-30); Chloride 107 mmol/L (98-107); Estimated Creatinine Clearance 49 ml/min; Glucose 128 mg/dl (70-99); Potassium 3.8 mmol/L (3.5-5.1); Sodium 133 mmol/L (135-145); eGFR > 60.00
--- NOTE | 2025-11-09 07:17 | W.PN.HOSP.TC ---
Today's Communication/Plan
-
Discharge planning to SNF
Assessment / Plan
Assessment / Plan
85-year-old male past medical history of CKD 3A, prior DVT PE with history of IVC filter, rheumatic fever, presented after experiencing recurrent falls. Initial investigation with DVT on the right lower extremity.
#Right Lower Extremity DVT
- US with Occlusive thrombus throughout the popliteal vein extending into the peroneal and posterior tibial veins. Additionally there is nonocclusive thrombus within the distal femoral vein.
- s/p heparin bolus and heparin drip on hold since we are getting additional neuro workup for possible stroke
- heme input appreciated
- There was concern for safety with patient on anticoagulation given the history of frequent falls however given the findings of stroke and history of multiple DVTs, after discussion with the neurology team elected to start Eliquis 5 mg twice daily
#Acute CVA
#Generalized Weakness / Frequent Falls /acute change in mental status
# hx of Dementia
-COVID and Influenza negative
- brain MRI results reviewed. : Acute infarcts in the paramedian left frontal and left parietal lobes.
- CTA head and neck noted
- started eliquis 5mg bid per neuro recs ; will continue
- continue with atorvastatin 40 mg
- tolerating diet
- Eliquis will continue for 3 months and patient will have a outpatient follow-up with neurology to discuss if there is any switch to ASA as appropriate at that time.
-- Family was updated at bedside. Overall patient is much more alert. Able to answer simple questions and respond to commands. Family more interested to continue anticoagulation lifelong versus doing a KAT
PT recommended acute rehab; PMR recommedn SNF before acute rehab
Head CT IMPRESSION:
No acute intracranial abnormality noted.
There are moderate periventricular and subcortical white matter hypodensities which are nonspecific although may be sequelae of moderate chronic small vessel ischemic disease.
# Right UE swelling
- US negative; swelling imporving
#Cardiac Murmur(pansystiolic), likely related to rheumatic heart disease
- ECHO SUMMARY
1. Normal left ventricular chamber size with mild left ventricular hypertrophy, ejection fraction 6065%.
2. Moderate aortic stenosis with peak/mean gradient of 59/36 mmHg respectively, aortic valve area 1.3 cm².
- cardio consulted for possible cardiac workup/monitoring for cause of stroke ; if there is any arrhythmia/A-fib it will warrant lifelong continuation of Eliquis
#CKD Stage IIIA
-Renal function at baseline
Code Status: Full Code
DVT prophylaxis: Patient is on Eliquis
Anticipated Discharge: Today
Subjective/Interval History
-
Date of Service: November 09, 2025
AFVSS. offers no new complaints
Objective Data
-
Labs:
Laboratory Results
11/09/25
05:23
Sodium 133 L
Potassium 3.8
Chloride 107
Carbon Dioxide 18 L
BUN 25 H
Creatinine 1.1
Glucose 128 H
Calcium 8.8
Vital Signs:
Vital Signs
Temp Pulse Resp BP Pulse Ox
98.3 F 76 16 155/72 96
11/09/25 03:00 11/09/25 03:00 11/09/25 03:00 11/09/25 03:00 11/09/25 03:00
I&O
11/08/25 11/09/25 11/10/25
06:59 06:59 06:59
Intake Total 480 / 480 960 / 960
Output Total 575 / 575 50 / 50
Balance -95 / -95 910 / 910
Review of Systems
-
Unable to obtain full review of systems at this time due to: Dementia
History Source: Patient
Respiratory: Denies Trouble Breathing
Cardiac: Denies Chest Pain
Abdomen/GI: Denies Abdominal Pain
Neuro: Denies Headache or Weakness
Physical Exam
-
General: Comfortable and Appears Chronically Ill
Respiratory: Clear to Auscultation and Non Labored Respirations
Cardiac: Regular Rhythm, S1/S2 and Murmur (Pansystolic)
GI: Soft and Nontender
Musculoskeletal: No Cyanosis and Edema, Right Upper Extrem
Skin: Warm and Other (Mild erythema of right lower extremity; overall significantly improved)
Neuro: Awake, Alert and Other (Oriented to time but not to place, sensory exam in the bilateral upper and lower extremity intact.)
Psych: Calm
Data Reviewed
-
Labs: Labs Reviewed by me, Discussed with Physician and Discussed with Patient
[2025-11-09] MEDS: ELIQUIS 5 MG PO ×2 (08:11→21:42)
--- NOTE | 2025-11-09 10:52 | VATNOTE ---
Patient with previous infiltrate to right arm; pitting edema noted. PCN Catina reports u/s was done yesterday, which was negative. Recommend keeping arm elevated when possible.
--- NOTE | 2025-11-09 15:31 | CM ---
CM following patient for discharge to [facility]. CM attempted to obtain SNF authorization for discharge tomorrow, however updated therapy notes are required tomorrow, so will need to contact [facility] for authorization.
[facility]
Dr. Daniel Cisse
[2025-11-09] MEDS: LIPITOR 40 MG PO (17:03)
[2025-11-10 03:57] VITALS: BP 181/51
--- NOTE | 2025-11-10 04:00 | PTCARENOTE ---
Patient's HR reaching up to 180. Patient laying in bed, asymptomatic. CONSTRUCTION SAFETY MANAGER Kelly Ruiz notified. Patient immediately showing NSR on monitor. No new orders at this time. Plan of care ongoing.
[2025-11-10 06:35] LABS: Hematocrit 30.1 % (39.0-52.0); Hemoglobin 10.5 g/dL (13.0-18.0); Mean Corp Hgb Conc. 34.9 g/dL (33.0-37.0); Mean Corpuscular Volume 90.9 fL (80.0-94.0); Platelet Count 246 10^3/uL (130-400); Red Cell Dist. Width 11.9 % (11.5-14.5)
--- NOTE | 2025-11-10 07:07 | W.PN.HOSP.TC ---
Today's Communication/Plan
-
losartan for bp
dc to snf
Assessment / Plan
Assessment / Plan
85-year-old male past medical history of CKD 3A, prior DVT PE with history of IVC filter, rheumatic fever, presented after experiencing recurrent falls. Initial investigation with DVT on the right lower extremity.
#Right Lower Extremity DVT
- US with Occlusive thrombus throughout the popliteal vein extending into the peroneal and posterior tibial veins. Additionally there is nonocclusive thrombus within the distal femoral vein.
- s/p heparin bolus and heparin drip on hold since we are getting additional neuro workup for possible stroke
- heme input appreciated
- There was concern for safety with patient on anticoagulation given the history of frequent falls however given the findings of stroke and history of multiple DVTs, after discussion with the neurology team elected to start Eliquis 5 mg twice daily
#Acute CVA
#Generalized Weakness / Frequent Falls /acute change in mental status
# hx of Dementia
-COVID and Influenza negative
- brain MRI results reviewed. : Acute infarcts in the paramedian left frontal and left parietal lobes.
- CTA head and neck noted
- started eliquis 5mg bid per neuro recs ; will continue
- continue with atorvastatin 40 mg
- tolerating diet
- Eliquis will continue for 3 months and patient will have a outpatient follow-up with neurology to discuss if there is any switch to ASA as appropriate at that time.
-- Family was updated at bedside. Overall patient is much more alert. Able to answer simple questions and respond to commands. Family more interested to continue anticoagulation lifelong versus doing a KAT
PT recommended acute rehab; PMR recommedn SNF before acute rehab
Head CT IMPRESSION:
No acute intracranial abnormality noted.
There are moderate periventricular and subcortical white matter hypodensities which are nonspecific although may be sequelae of moderate chronic small vessel ischemic disease.
# Right UE swelling
- US negative; swelling imporving
# Essential Hypertension
- start losartan 50mg
#Cardiac Murmur(pansystiolic), likely related to rheumatic heart disease
- ECHO SUMMARY
1. Normal left ventricular chamber size with mild left ventricular hypertrophy, ejection fraction 6065%.
2. Moderate aortic stenosis with peak/mean gradient of 59/36 mmHg respectively, aortic valve area 1.3 cm².
- cardio consulted for possible cardiac workup/monitoring for cause of stroke ; if there is any arrhythmia/A-fib it will warrant lifelong continuation of Eliquis
#CKD Stage IIIA
-Renal function at baseline
Code Status: Full Code
DVT prophylaxis: Patient is on Eliquis
Anticipated Discharge: Today
Subjective/Interval History
-
Date of Service: November 10, 2025
Afebrile. Blood pressure slightly on the higher side. Offers no new complaints.
Objective Data
-
Labs:
Laboratory Results
11/10/25
05:51
WBC 10.9 H
Hgb 10.5 L
Hct 30.1 L
Plt Count 246
Vital Signs:
Vital Signs
Temp Pulse Resp BP Pulse Ox
98.6 F 78 16 181/51 97
11/10/25 03:57 11/10/25 03:57 11/10/25 03:57 11/10/25 03:57 11/10/25 03:57
I&O
11/09/25 11/10/25 11/11/25
06:59 06:59 06:59
Intake Total 960 / 960 960 / 960
Output Total 50 / 50
Balance 910 / 910 960 / 960
Review of Systems
-
Unable to obtain full review of systems at this time due to: Dementia
History Source: Patient
Respiratory: Denies Trouble Breathing
Cardiac: Denies Chest Pain
Abdomen/GI: Denies Abdominal Pain
Neuro: Denies Headache or Weakness
Physical Exam
-
General: Comfortable and Appears Chronically Ill
Respiratory: Clear to Auscultation and Non Labored Respirations
Cardiac: Regular Rhythm, S1/S2 and Murmur (Pansystolic)
GI: Soft and Nontender
Musculoskeletal: No Cyanosis and Edema, Right Upper Extrem
Skin: Warm and Other (Mild erythema of right lower extremity; overall significantly improved)
Neuro: Awake, Alert and Other (Oriented to time but not to place, sensory exam in the bilateral upper and lower extremity intact.)
Psych: Calm
Data Reviewed
-
Labs: Labs Reviewed by me, Discussed with Physician and Discussed with Patient
[2025-11-10 07:30] VITALS: BP 158/73
[2025-11-10] MEDS: ELIQUIS 5 MG PO (08:29)
[2025-11-10] MEDS: COZAAR 50 MG PO (08:39)
[2025-11-10 11:45] VITALS: BP 157/67
--- NOTE | 2025-11-10 11:53 | CM ---
indicated discharge today.
Carrie at [facility] has abed.
Called [phone] spoke with Ayad obtained auth from 11/10/25 to11/15/25 auth # [id number] [facility] call [phone]
Acute care auth number [id number]
Auth info given to Vernell at [facility] .
Ambulance medical nec form completed.
M with [facility].
[place]
report [phone] ext [phone]
fax [phone]
PLAN To [facility]
--- NOTE | 2025-11-10 12:57 | WOUNDNOTE ---
[facility] RN NOTE: Patient visited for follow up of stage 2 PI of sacrum. Wound appears stable. Patient remains on Versa Care Air bed and turning schedule. New dressing recently applied to abrasions and heels. Plan is for discharge to SNF today. All wound
care are in discharge instructions. LORETTA Fan updated.
--- NOTE | 2025-11-10 13:02 | WOUNDNOTE ---
[facility] [id number]
--- NOTE | 2025-11-10 13:25 | W.DCSUMMARY ---
Discharge Summary
Discharge Data
Date of Admission: 11/05/25
Date of Discharge: 11/10/25
-
Pending Results: No
Hospital Course
Discharging Physician : Tomer Cortez MD ; Asad Valverde MD
Disposition : SNF
Primary care physician : Dr. Julian
Principal Discharge diagnosis : Acute CVA, Right Lower Extremity DVT, essential hypertension
Chronic Discharge diagnosis : CKD Stage IIIA, Cardiac Murmur(pansystiolic), likely related to rheumatic heart disease
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
Initial investigation showed DVT and he was started on IV heparin.
He remained sleepy since he was presented in the hospital and initial impression from some family members was that this is his base line. However after couple of days his 2 daughters reported that this is a acute change in his mental status. Initial
CT was done as there was reported falls; results as below. With this new information MRI brain was ordered and Neuro was consulted.
MRI showed acute stroke.
He was started on Eliquis. Given the recurrent falls and risk of bleeding it was decided to continue eliquis 5mg BID vs opting for any higher dose. There was no obvious reason for his CVA, cardiology was consulted for possible cardioembolic stroke
and workup. However given recurrent falls, multiple dvts and hx of PE. it was decided by family to continue lifelong eliquis and not pursue any cardiac workup like KAT or loop recorder. Patient continues to improve during hospital stay;
progressively become more responsive and respond to commands. Become more Alert and oriented.
Patient was evaluated by pt ot and was recommended acute rehab, PMR was consulted for placement at [facility] however it was recommended to start with skilled rehab before acute rehab.
CM helped securing a bed at SNF.
He was medically stable on day of discharge.
His new medications will be
Losartan 50 mg daily for hypertension
Atorvastatin 40mg daily to lower LDL given hx of CVA
Eliquis 5mg BID for DVT and post CVA
Important imaging findings : US Perip Venous LOWER Ext RT:
Occlusive thrombus throughout the popliteal vein extending into the peroneal and posterior tibial veins. Additionally there is nonocclusive thrombus within the distal femoral vein.
CT Head W/o Iv Contrast
No acute intracranial abnormality noted.
There are moderate periventricular and subcortical white matter hypodensities which are nonspecific although may be sequelae of moderate chronic small vessel ischemic disease. If there is high clinical suspicion for ischemia an MRI may be considered
for further evaluation.
CT Head & Neck Angio W/wo IV
IMPRESSION:
CT Brain: No acute intracranial process. Specifically, no evidence of acute hemorrhage.
CTA Head: No large vessel occlusion. There is mild stenosis of the right supraclinoid ICA and mild/moderate stenosis of the left supraclinoid ICA secondary to calcified atherosclerotic plaque.
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
Mild atherosclerotic calcifications of the bilateral carotid bifurcations without significant stenosis.
MR Brain W/o & With Contrast:
Acute infarcts in the paramedian left frontal and left parietal lobes.
US Periph Venous UPPER Ext RT
IMPRESSION:
1. No sonographic evidence for right upper extremity venous thrombosis.
2. Severe diffuse subcutaneous edema throughout the right forearm.
Procedure findings : TRANSTHORACIC ECHOCARDIOGRAM REPORT
SUMMARY
1. Normal left ventricular chamber size with mild left ventricular hypertrophy, ejection fraction 6065%.
2. Moderate aortic stenosis with peak/mean gradient of 59/36 mmHg respectively, aortic valve area 1.3 cm².
3. No prior echo for comparison.
Discharge Plan
-
Patient Disposition: Long Term/SNF
Discharge Diagnosis/Procedures: Acute CVA, Right Lower Extremity DVT, essential hypertension
Condition: Fair
Diet: Regular
Additional Diets: with supervision
Activity: With assistance and As tolerated
Driving Restrictions: Not until seen by your Dr
Bathing Restrictions: None
Other Services: PT and OT
Activity Restrictions/Additional Instructions:
Wound Care Instructions
Coccyx/L buttocks-clean with saline or soap and water, silicone border foam, change q 3 days and prn soilage. If foam ineffective, apply zinc barrier ointment TID instead.
R elbow, back skin tears-clean with saline or soap and water, silicone border foam, change q 3 days and prn loosened dressing.
Heels-protective foam, change q 3 days and prn loosened dressing.
Holly skin-barrier ointment BID.
Air mattress
Turning schedule
Elevate heels off bed with pillows.
Pressure redistributing chair cushion (i.e. Air, gel).
Follow up at wound care if needed, center call for an appointment.
Referrals:
Katelynn Villalta PA-C [Specified Professional Personl, Cardiology] - 12/08/25 10:00 am
Referral Note: You have cardiology follow-up with Katelynn Villalta PA-C on December 08 at 10 AM in [address] in [address] [place] which is located behind [facility]. If you are unable to make this appointment please call [phone] to reschedule
Arthur De Leon MD [Active, Neurology] - in one to two months
Bright Julian MD [Family Provider, Family Practice]
Additional Discharge Medication Instructions: Take atorvastatin 40 mg 1 tablet by mouth daily at bedtime
Take Eliquis 5 mg 1 tablet by mouth twice daily
Take losartan 50 mg 1 tablet by mouth daily
Please follow-up outpatient with cardiology on 12/08/2025 at 10 AM
Please follow-up with your family doctor within 1 week
Please follow-up with neurology in 2 to 3 months
Prescriptions:
New
losartan 50 mg Tablet
50 mg PO DAILY Qty: 0 0RF
atorvastatin 40 mg Tablet
40 mg PO QPM Qty: 0 0RF
Eliquis 5 mg Tablet
5 mg PO BID Qty: 0 0RF
Discharge Orders:
Discharge Patient (As Directed); Ordered 11/10/25
Ordered By: Tomer Cortez
Discharge Date and Time
Print Language: GREENLANDIC
[2025-11-10 16:00] VITALS: BP 141/58
--- NOTE | 2025-11-10 16:29 | PTCARENOTE ---
patient denies complaints, tolerating diet, but intake poor at times due to patient falling asleep during feeding session. turns with max assist x2, body rigid, vss, for discharge to [facility] today.
== END 2025-11-10 17:07 | DRG 299 ==
LOC: 3 WEST ACU 07:33
PROVIDERS: Emergency Medicine; Internal Medicine; Physician Assistant Medical; Registered Nurse; ADMITTING PHYSICIAN Hospitalist; ATTENDING PHYSICIAN Hospitalist; CONSULT PHYSICIAN Internal Medicine Cardiovascular Disease; CONSULT PHYSICIAN Internal Medicine Hematology & Oncology; CONSULT PHYSICIAN Physical Medicine & Rehabilitation; CONSULT PHYSICIAN Psychiatry & Neurology Neurology; EMERGENCY PHYSICIAN Emergency Medicine; FAMILY PHYSICIAN Family Medicine
DX: I82.431 Acute embolism and thrombosis of right popliteal vein (principal); I63.9 Cerebral infarction, unspecified; I12.9 Hypertensive chronic kidney disease with stage 1 through stage 4 chronic kidney disease, or unspecified chronic kidney disease; N18.31 Chronic kidney disease, stage 3a; I06.0 Rheumatic aortic stenosis; Z86.718 Personal history of other venous thrombosis and embolism; Z95.828 Presence of other vascular implants and grafts; Z86.19 Personal history of other infectious and parasitic diseases; F03.90 Unspecified dementia, unspecified severity, without behavioral disturbance, psychotic disturbance, mood disturbance, and anxiety; R29.6 Repeated falls; Z96.651 Presence of right artificial knee joint; Z96.641 Presence of right artificial hip joint; D72.829 Elevated white blood cell count, unspecified; R29.703 NIHSS score 3; R32 Unspecified urinary incontinence; N40.1 Benign prostatic hyperplasia with lower urinary tract symptoms; Z79.899 Other long term (current) drug therapy; Z86.711 Personal history of pulmonary embolism; Z86.73 Personal history of transient ischemic attack (TIA), and cerebral infarction without residual deficits; G62.9 Polyneuropathy, unspecified
CPT/HCPCS: 70450; 70496; 70498; 70553; 80048; 80053; 80061; 81003; 81015; 82607; 82728; 82746; 83036; 83735; 84443; 85025; 85027; 85730; 87040; 87502; 87811; 92507; 92523; 92610; 93306; 93971; 96374; 97110; 97112; 97530; 97535; 99285; A9575; Q9967